=== PATIENT | male | born 1950 | race Caucasian/White ===

== ENCOUNTER 2018-10-21 15:43 | Inpatient (IN) | payer OTHER ==
[2018-10-21 17:49] VITALS: BMI 208.0
--- NOTE | 2018-10-21 18:55 | HP ---
COWS - Scale Resting Pulse: 1= [place] 81-100 Sweatin=Flushed/Facial Moisture Restless Observation: 1= Difficult to Sit Still Pupil Size: 0= Normal to Room Light Bone or Joint Aches: 2= Severe Diffuse Aches Runny Nose/ Eye Tearin= Runny Nose/Eyes GI Upset > 30mins: 2= Nausea/Diarrhea Tremor Observation: 2= Slight Tremor Visible Yawning Observation: 2= >3x During Session Anxiety or Irritability: 2=Irritable/Anxious Goose Flesh Skin: 3=Piloerection COWS Score: 19 CIWA Score - Admission Criteria OASAS Guidelines: Admission for Medically Managed Detox: Requires at least one of the followin. CIWA greater than 12 2. Seizures within the past 24 hours 3. Delirium tremens within the past 24 hours 4. Hallucinations within the past 24 hours 5. Acute intervention needed for co occurring medical disorder 6. Acute intervention needed for co occurring psychiatric disorder 7. Severe withdrawal that cannot be handled at a lower level of care (continued vomiting, continued diarrhea, abnormal vital signs) requiring intravenous medication and/or fluids 8. Admission ROS [facility] - [facility] Chief Complaint: I am here to get the help I need to detox. Allergies/Adverse Reactions: Allergies Allergy/AdvReac Type Severity Reaction Status Date / Time No Known Allergies Allergy Verified 10/21/18 18:49 History of Present Illness: pt is a 68yr old male with a history of heroin and crack/cocaine dependence seeking detox for treatment. pt was sober for 25yrs then his passed a year ago and he tried to keep it together, pt relapsed 5weeks ago and is here for detox. Exam Limitations: No Limitations - Ebola screening Have you traveled outside of the country in the last 21 days: No (N) Have you had contact with anyone from an Ebola affected area: No Have you been sick,other than usual withdrawal symptoms: No Do you have a fever: No - Review of Systems Constitutional: Chills, Diaphoresis, Loss of Appetite, Night Sweats, Unintentional Wgt. Loss EENT: reports: Tearing, Nose Congestion Respiratory: reports: No Symptoms reported Cardiac: reports: Lightheadedness, Syncope GI: reports: Constipated, Diarrhea, Poor Appetite, Poor Fluid Intake : reports: No Symptoms Reported Musculoskeletal: reports: Back Pain, Joint Pain Integumentary: reports: Flushing, Sweating Neuro: reports: Tingling, Tremors Endocrine: reports: Excessive Sweating, Flushing, Intolerance to Cold, Intolerance to Heat Hematology: reports: No Symptoms Reported Psychiatric: reports: Judgement Intact, Mood/Affect Appropiate, Orientated x3, Agitated, Anxious Other Systems: Reviewed and Negative Patient History - Patient Medical History Hx Anemia: No Hx Asthma: No Hx Chronic Obstructive Pulmonary Disease (COPD): No Hx Cancer: No Hx Cardiac Disorders: No Hx Congestive Heart Failure: No Hx Hypertension: Yes (not sure of the name) Hx Hypercholesterolemia: No Hx Pacemaker: No HX Cerebrovascular Accident: No Hx Seizures: No Hx Dementia: No Hx Diabetes: No Hx Gastrointestinal Disorders: Yes (acid reflux) Hx Liver Disease: No Hx Genitourinary Disorders: No Hx Sexually Transmitted Disorders: No Hx Renal Disease (ESRD): No Hx Thyroid Disease: No Hx Human Immunodeficiency Virus (HIV): No (negative) Hx Hepatitis C: Yes (undectecable/no treatment) Hx Depression: Yes Hx Suicide Attempt: No (denies) Hx Bipolar Disorder: No Hx Schizophrenia: No - Patient Surgical History Past Surgical History: No - PPD History Previous Implant?: Yes Documented Results: Negative w/proof PPD to be Administered?: No - Reproductive History Patient is a Female of Child Bearing Age (11 -55 yrs old): No - Smoking Cessation Smoking history: Former smoker Have you smoked in the past 12 months: No If you are a former smoker, when did you quit?: 25yrs ago Hx Chewing Tobacco Use: No Initiated information on smoking cessation: Yes 'Breaking Loose' booklet given: 10/21/18 - Substance & Tx. History Hx Alcohol Use: No Hx Substance Use: Yes Substance Use Type: Cocaine, Heroin Hx Substance Use Treatment: Yes (last detox 25yrs ago) - Substances Abused Heroin Route: Inhalation Frequency: Daily Amount used: 10bags daily Age of first use: 18 Date of Last Use: 10/21/18 Crack Route: Smoking Frequency: Daily Amount used: $500 Age of first use: 30 Date of Last Use: 10/21/18 Family Disease History - Family Disease History Family History: Denies Family Disease History: Diabetes: Mother, Heart Disease: Mother Admission Physical Exam BHS - Vital Signs Vital Signs: Vital Signs - 24 hr 12/26/18 17:47 Temperature 98.7 F Pulse Rate 84 Respiratory 18 Rate Blood Pressure 146/71 - Physical General Appearance: Yes: Appropriately Dressed, Moderate Distress, Thin, Tremorous, Irritable, Sweating, Anxious HEENTM: Yes: Hearing grossly Normal, Normal Voice, Nasal Congestion, Rhinorrhea Respiratory: Yes: Lungs Clear, Normal Breath Sounds, No Respiratory Distress Neck: Yes: No masses,lesions,Nodules Breast: Yes: Within Normal Limits Cardiology: Yes: Regular Rhythm, Regular Rate, S1, S2, Tachycardia Abdominal: Yes: Non Tender, Soft Genitourinary: Yes: Within Normal Limits Back: Yes: Normal Inspection Musculoskeletal: Yes: full range of Motion, Back pain Extremities: Yes: Normal Capillary Refill, Normal Inspection, Non-Tender, Tremors Neurological: Yes: Fully Oriented, Alert, Normal Response Integumentary: Yes: Normal Color, Diaphoresis Lymphatic: Yes: Within Normal Limits - Diagnostic (1) Opioid dependence with withdrawal Current Visit: Yes Status: Chronic (2) Crack cocaine use Current Visit: Yes Status: Chronic (3) Hypertension Current Visit: Yes Status: Chronic Qualifiers: Hypertension type: essential hypertension Qualified Code(s): I10 - Essential (primary) hypertension Cleared for Admission [facility] - Detox or Rehab [facility] Level of Care: Medically Managed Detox Regimen/Protocol: Methadone [facility] Breath Alcohol Content Breath Alcohol Content: 0 Urine Drug Screen - Results Drug Screen Negative: No Urine Drug Screen Results: ROSIO-Cocaine, OPI-Opiates, BZO-Benzodiazepines
[2018-10-21] MEDS ORDERED: LOPERAMIDE HCL 2 MG CAPSULE PO PRN (19:04)
[2018-10-21] MEDS ORDERED: ACETAMINOPHEN 325 MG TABLET (FP) PO PRN (19:04)
[2018-10-21] MEDS ORDERED: guaiFENesin/D-METHORPHAN HB 10 ML UNIT-DOSE CUPS PO PRN (19:04)
[2018-10-21] MEDS ORDERED: P-EPHED 60MG/TRIPROLIDI 2.5MG TABLET PO PRN (19:04)
[2018-10-21] MEDS ORDERED: IBUPROFEN 400 MG TABLET (FP) PO PRN (19:04)
[2018-10-21] MEDS ORDERED: MAGNESIUM CITRATE 300 ML BOTTLE PO PRN (19:04)
[2018-10-21] MEDS ORDERED: MAG HYDROX/AL HYDROX/SIMETH 30 ML UNIT-DOSE CUP PO PRN (19:04)
[2018-10-21] MEDS ORDERED: MAGNESIUM HYDROX 2400MG/30ML ORAL SUSPENSION 30 ML CUP PO PRN (19:04)
[2018-10-21] MEDS ORDERED: METHADONE HCL 10 MG TABLET (FOR DETOX USE ONLY) PO ONE ×2 (19:04→23:00)
[2018-10-21] MEDS ORDERED: MENTHOL/PHENOL 1 EACH UD MM PRN (19:04)
[2018-10-21] MEDS ORDERED: MELATONIN 5 MG TABLETS PO PRN (22:00)
[2018-10-21] MEDS: THIAMINE HCL 100 MG TABLET (FP) PO SCH (22:29)
[2018-10-21] MEDS: cloNIDine HCL 0.1 MG TABLET PO SCH (22:30)
[2018-10-21] MEDS: diazePAM 5 MG TABLET PO PRN (22:52)
[2018-10-22] MEDS: diazePAM 5 MG TABLET PO PRN ×2 (05:52→18:22)
[2018-10-22] MEDS ORDERED: METHADONE HCL 10 MG TABLET (FOR DETOX USE ONLY) PO ONE (10:00)
[2018-10-22] MEDS: PRENATAL VITAMINS W/ FOLIC ACID TABLET (FP) PO SCH (10:08)
[2018-10-22] MEDS: cloNIDine HCL 0.1 MG TABLET PO SCH ×2 (10:08→22:10)
--- NOTE | 2018-10-22 10:11 | PN ---
BHS COWS - Scale Resting Pulse: 0= [place] 80 or Below Sweatin=Flushed/Facial Moisture Restless Observation: 1= Difficult to Sit Still Pupil Size: 0= Normal to Room Light Bone or Joint Aches: 2= Severe Diffuse Aches Runny Nose/ Eye Tearin= Runny Nose/Eyes GI Upset > 30mins: 1= Stomach Cramp Tremor Observation of Outstretched Hands: 2= Slight Tremor Visible Yawning Observation: 2= >3x During Session Anxiety or Irritability: 2=Irritable/Anxious Goose Flesh Skin: 3=Piloerection COWS Score: 17 BHS Progress Note (SOAP) Subjective: shakes sweats interrupted sleep body aches tearing eyes Objective: 10/22/18 10:11 Vital Signs Temperature 98.1 F 10/22/18 09:54 Pulse Rate 80 10/22/18 09:54 Respiratory Rate 18 10/22/18 09:54 Blood Pressure 124/79 10/22/18 09:54 O2 Sat by Pulse Oximetry (%) labs pending aaox3 ambulating no acute distress Assessment: 10/22/18 10:12 withdrawal sx Plan: continue detox increase fluids labs pending
[2018-10-22 10:59] LABS: HEMATOCRIT 38.7 % (35.4-49); HEMOGLOBIN 12.7 GM/dL (11.7-16.9); MCH 27.6 pg (25.7-33.7); MCHC 32.8 g/dl (32.0-35.9); MEAN CELL VOLUME 84.2 fl (80-96); MEAN PLT VOLUME 8.5 fl (7.5-11.1); PLATELET COUNT 332 K/MM3 (134-434); RDW 14.3 % (11.9-15.9); WHITE BLOOD COUNT 12.9 K/mm3 (4.0-10.0)
[2018-10-22 11:42] LABS: ALBUMIN 3.1 g/dl (3.4-5.0); ALK PHOS 60 U/L (45-117); ANION GAP 7 MMOL/L (8-16); BILIRUBIN,TOTAL 0.3 mg/dL (0.2-1); BLOOD UREA NITROGEN 18 mg/dL (7-18); CALCIUM 8.4 mg/dL (8.5-10.1); CHLORIDE 98 mmol/L (98-107); CO2 33 mmol/L (21-32); CREATININE 0.9 mg/dL (0.55-1.3); GLUCOSE,RANDOM 112 mg/dL (74-106); POTASSIUM 3.8 mmol/L (3.5-5.1); SGOT/AST 25 U/L (15-37); SGPT/ALT 23 U/L (13-61); SODIUM 137 mmol/L (136-145); TOT PROT 5.6 g/dl (6.4-8.2)
--- NOTE | 2018-10-22 12:17 | EKG ---
Test Reason : Blood Pressure : / mmHG Vent. Rate : 081 BPM Atrial Rate : 081 BPM P-R Int : 148 ms QRS Dur : 088 ms QT Int : 384 ms P-R-T Axes : 070 008 071 degrees QTc Int : 446 ms POOR DATA QUALITY, INTERPRETATION MAY BE ADVERSELY AFFECTED NORMAL SINUS RHYTHM WITH SINUS ARRHYTHMIA NORMAL ECG NO PREVIOUS ECGS AVAILABLE Confirmed by TREVON VILLAVICENCIO MD ([id number]) on 10/22/2018 12:17:18 PM Referred By: Confirmed By:TREVON VILLAVICENCIO MD
--- NOTE | 2018-10-22 12:47 | PN ---
BHS Progress Note Note: open cut to right thumb and index finger; bacitracin oint ordered
[2018-10-22] MEDS: BACITRACIN 0.9 GM PACKET TP SCH ×2 (15:12→22:10)
[2018-10-22] MEDS: THIAMINE HCL 100 MG TABLET (FP) PO SCH (22:10)
[2018-10-23] MEDS ORDERED: SODIUM PHOSPHATE/NA BIPHOS 133 ML ENEMA PR ONE (09:40)
[2018-10-23] MEDS ORDERED: METHADONE HCL 5 MG TABLET (FOR DETOX USE ONLY) PO ONE (10:00)
--- NOTE | 2018-10-23 10:02 | PN ---
BHS COWS - Scale Resting Pulse: 1= [place] 81-100 Sweatin=Flushed/Facial Moisture Restless Observation: 1= Difficult to Sit Still Pupil Size: 0= Normal to Room Light Bone or Joint Aches: 2= Severe Diffuse Aches Runny Nose/ Eye Tearin= Runny Nose/Eyes GI Upset > 30mins: 1= Stomach Cramp Tremor Observation of Outstretched Hands: 2= Slight Tremor Visible Yawning Observation: 2= >3x During Session Anxiety or Irritability: 2=Irritable/Anxious Goose Flesh Skin: 0=Smooth Skin COWS Score: 15 BHS Progress Note (SOAP) Subjective: i need to move my bowels stomach ache sweats chills body aches Objective: 10/23/18 10:02 Vital Signs Temperature 98.8 F 10/23/18 09:07 Pulse Rate 91 H 10/23/18 09:07 Respiratory Rate 18 10/23/18 09:07 Blood Pressure 141/80 10/23/18 09:07 O2 Sat by Pulse Oximetry (%) Laboratory Tests 10/22/18 10/22/18 10/22/18 07:00 07:00 07:00 WBC 12.9 H RBC 4.60 Hgb 12.7 Hct 38.7 MCV 84.2 MCH 27.6 MCHC 32.8 RDW 14.3 Plt Count 332 MPV 8.5 Sodium 137 Potassium 3.8 Chloride 98 Carbon Dioxide 33 H Anion Gap 7 L BUN 18 Creatinine 0.9 Creat Clearance w eGFR > 60 Random Glucose 112 H Calcium 8.4 L Total Bilirubin 0.3 AST 25 ALT 23 Alkaline Phosphatase 60 Total Protein 5.6 L Albumin 3.1 L RPR Titer Nonreactive aaox3 ambulating no acute distress Assessment: 10/23/18 10:09 withdrawal sx Plan: continue detox increase fluids prune juice ordered with meals fleets enema x one senna bid
[2018-10-23] MEDS: BACITRACIN 0.9 GM PACKET TP SCH ×2 (10:21→22:21)
[2018-10-23] MEDS: cloNIDine HCL 0.1 MG TABLET PO SCH ×2 (10:21→22:21)
[2018-10-23] MEDS: PRENATAL VITAMINS W/ FOLIC ACID TABLET (FP) PO SCH (10:21)
[2018-10-23] MEDS: SENNOSIDES 8.6MG TABLET (FP) PO SCH ×2 (10:26→22:21)
[2018-10-23] MEDS: DOCUSATE SODIUM 100 MG CAPSULE (FP) PO SCH ×2 (13:31→22:21)
[2018-10-23] MEDS: diazePAM 5 MG TABLET PO PRN (13:36)
[2018-10-23] MEDS: PSYLLIUM 5.85 GM PACKET PO SCH ×2 (15:53→22:24)
[2018-10-23] MEDS: THIAMINE HCL 100 MG TABLET (FP) PO SCH (22:21)
[2018-10-24] MEDS: DOCUSATE SODIUM 100 MG CAPSULE (FP) PO SCH ×3 (06:49→23:22)
[2018-10-24] MEDS: PSYLLIUM 5.85 GM PACKET PO SCH ×3 (06:49→23:22)
[2018-10-24] MEDS ORDERED: METHADONE HCL 5 MG TABLET (FOR DETOX USE ONLY) PO ONE (10:00)
--- NOTE | 2018-10-24 10:09 | PN ---
S Progress Note Note: PATIENT CONTINUES WITH DETOX REGIMEN. C/O MILD BODY ACHES, INTERRUPTED SLEEP AND ANXIETY. Vital Signs Temperature 99.1 F 10/24/18 09:26 Pulse Rate 77 10/24/18 09:26 Respiratory Rate 16 10/24/18 09:26 Blood Pressure 122/69 10/24/18 09:26 O2 Sat by Pulse Oximetry (%) Laboratory Tests 10/22/18 10/22/18 10/22/18 07:00 07:00 07:00 WBC 12.9 H RBC 4.60 Hgb 12.7 Hct 38.7 MCV 84.2 MCH 27.6 MCHC 32.8 RDW 14.3 Plt Count 332 MPV 8.5 Sodium 137 Potassium 3.8 Chloride 98 Carbon Dioxide 33 H Anion Gap 7 L BUN 18 Creatinine 0.9 Creat Clearance w eGFR > 60 Random Glucose 112 H Calcium 8.4 L Total Bilirubin 0.3 AST 25 ALT 23 Alkaline Phosphatase 60 Total Protein 5.6 L Albumin 3.1 L RPR Titer Nonreactive PE: ALERT AND ORIENTED X 3 SKIN WARM AND DRY EXT FULL ROM, NO VISIBLE TREMORS AMB AD LUCRECIA A/P WITHDRAWAL SX IMPROVED CONTINUE DETOX ENCOURAGE ORAL FLUIDS CONTINUE TO MONITOR CLINICALLY
[2018-10-24] MEDS: PRENATAL VITAMINS W/ FOLIC ACID TABLET (FP) PO SCH (10:18)
[2018-10-24] MEDS: cloNIDine HCL 0.1 MG TABLET PO SCH ×2 (10:18→22:15)
[2018-10-24] MEDS: SENNOSIDES 8.6MG TABLET (FP) PO SCH ×2 (10:19→23:22)
[2018-10-24] MEDS: BACITRACIN 0.9 GM PACKET TP SCH ×2 (10:19→22:15)
[2018-10-24] MEDS: diazePAM 5 MG TABLET PO PRN (10:21)
[2018-10-24] MEDS: hydrOXYzine PAMOATE 50 MG CAPSULE (FP) PO PRN (19:47)
[2018-10-24] MEDS: THIAMINE HCL 100 MG TABLET (FP) PO SCH (22:15)
[2018-10-25] MEDS: PSYLLIUM 5.85 GM PACKET PO SCH ×3 (06:15→22:12)
[2018-10-25] MEDS: DOCUSATE SODIUM 100 MG CAPSULE (FP) PO SCH ×3 (06:15→22:12)
[2018-10-25] MEDS ORDERED: METHADONE HCL 10 MG TABLET (FOR DETOX USE ONLY) PO ONE (10:00)
[2018-10-25] MEDS: cloNIDine HCL 0.1 MG TABLET PO SCH ×2 (10:04→22:12)
[2018-10-25] MEDS: BACITRACIN 0.9 GM PACKET TP SCH ×2 (10:04→22:12)
[2018-10-25] MEDS: PRENATAL VITAMINS W/ FOLIC ACID TABLET (FP) PO SCH (10:04)
[2018-10-25] MEDS: SENNOSIDES 8.6MG TABLET (FP) PO SCH ×2 (10:05→22:12)
--- NOTE | 2018-10-25 10:06 | PN ---
BHS Progress Note (SOAP) Subjective: feeling better no body ache no tremor less sweat social with peers in day room sleep better at night Objective: 10/25/18 10:05 Vital Signs Temperature 96.9 F L 10/25/18 09:26 Pulse Rate 83 10/25/18 09:26 Respiratory Rate 18 10/25/18 09:26 Blood Pressure 133/86 10/25/18 09:26 O2 Sat by Pulse Oximetry (%) Laboratory Last Values WBC 12.9 K/mm3 (4.0-10.0) H 10/22/18 07:00 RBC 4.60 M/mm3 (4.00-5.60) 10/22/18 07:00 Hgb 12.7 GM/dL (11.7-16.9) 10/22/18 07:00 Hct 38.7 % (35.4-49) 10/22/18 07:00 MCV 84.2 fl (80-96) 10/22/18 07:00 MCH 27.6 pg (25.7-33.7) 10/22/18 07:00 MCHC 32.8 g/dl (32.0-35.9) 10/22/18 07:00 RDW 14.3 % (11.9-15.9) 10/22/18 07:00 Plt Count 332 K/MM3 (134-434) 10/22/18 07:00 MPV 8.5 fl (7.5-11.1) 10/22/18 07:00 Sodium 137 mmol/L (136-145) 10/22/18 07:00 Potassium 3.8 mmol/L (3.5-5.1) 10/22/18 07:00 Chloride 98 mmol/L (98-107) 10/22/18 07:00 Carbon Dioxide 33 mmol/L (21-32) H 10/22/18 07:00 Anion Gap 7 MMOL/L (8-16) L 10/22/18 07:00 BUN 18 mg/dL (7-18) 10/22/18 07:00 Creatinine 0.9 mg/dL (0.55-1.3) 10/22/18 07:00 Creat Clearance w eGFR > 60 (>60) 10/22/18 07:00 Random Glucose 112 mg/dL (74-106) H 10/22/18 07:00 Calcium 8.4 mg/dL (8.5-10.1) L 10/22/18 07:00 Total Bilirubin 0.3 mg/dL (0.2-1) 10/22/18 07:00 AST 25 U/L (15-37) 10/22/18 07:00 ALT 23 U/L (13-61) 10/22/18 07:00 Alkaline Phosphatase 60 U/L (45-117) 10/22/18 07:00 Total Protein 5.6 g/dl (6.4-8.2) L 10/22/18 07:00 Albumin 3.1 g/dl (3.4-5.0) L 10/22/18 07:00 RPR Titer Nonreactive (NONREACTIVE) 10/22/18 07:00 lab noted Assessment: 10/25/18 10:06 mild withdrawal sx Plan: medically supervised detox
[2018-10-25] MEDS: hydrOXYzine PAMOATE 50 MG CAPSULE (FP) PO PRN ×2 (10:07→22:11)
[2018-10-25 10:53] LABS: BASO % 0.4 % (0-2.0); EOS % 1.9 % (0-4.5); HEMATOCRIT 34.3 % (35.4-49); HEMOGLOBIN 11.9 GM/dL (11.7-16.9); LYMPH % 16.3 % (8-40); MCH 29.1 pg (25.7-33.7); MCHC 34.7 g/dl (32.0-35.9); MEAN CELL VOLUME 83.8 fl (80-96); MEAN PLT VOLUME 8.8 fl (7.5-11.1); MONO % 5.7 % (3.8-10.2); NEUT % 75.7 % (42.8-82.8); PLATELET COUNT 277 K/MM3 (134-434); RDW 14.8 % (11.9-15.9); WHITE BLOOD COUNT 13.3 K/mm3 (4.0-10.0)
--- NOTE | 2018-10-25 11:28 | EKG ---
Test Reason : Blood Pressure : / mmHG Vent. Rate : 076 BPM Atrial Rate : 076 BPM P-R Int : 152 ms QRS Dur : 092 ms QT Int : 388 ms P-R-T Axes : 070 011 055 degrees QTc Int : 436 ms NORMAL SINUS RHYTHM NORMAL ECG WHEN COMPARED WITH ECG OF 21-OCT-2018 21:58, NO SIGNIFICANT CHANGE WAS FOUND Confirmed by TREVON VILLAVICENCIO MD ([id number]) on 10/25/2018 11:27:57 AM Referred By: Confirmed By:TREVON VILLAVICENCIO MD
[2018-10-25] MEDS: THIAMINE HCL 100 MG TABLET (FP) PO SCH (22:10)
[2018-10-26] MEDS: DOCUSATE SODIUM 100 MG CAPSULE (FP) PO SCH (05:43)
[2018-10-26] MEDS: PSYLLIUM 5.85 GM PACKET PO SCH (05:44)
[2018-10-26] MEDS: hydrOXYzine PAMOATE 50 MG CAPSULE (FP) PO PRN (05:45)
[2018-10-26] MEDS ORDERED: METHADONE HCL 5 MG TABLET (FOR DETOX USE ONLY) PO ONE (06:00)
--- NOTE | 2018-10-26 08:37 | DS ---
[facility] Detox Discharge Summary Admission Date: 10/21/18 Discharge Date: 10/26/18 - History Present History: Cocaine Dependence, Opioid Dependence - Physical Exam Results Vital Signs: Vital Signs Temperature 97.7 F 10/26/18 06:59 Pulse Rate 75 10/26/18 06:59 Respiratory Rate 18 10/26/18 06:59 Blood Pressure 158/88 10/26/18 06:59 O2 Sat by Pulse Oximetry (%) - Treatment Hospital Course: Detox Protocol Followed, Detoxed Safely, Responded well, Discharged Condition Good, Rehab Referral Accepted - Medication Discharge Medications: Ambulatory Orders NK [No Known Home Medication] 10/21/18 - Diagnosis (1) Opioid dependence with withdrawal Current Visit: Yes Status: Chronic (2) Crack cocaine use Current Visit: Yes Status: Chronic (3) Hypertension Current Visit: Yes Status: Chronic Qualifiers: Hypertension type: essential hypertension Qualified Code(s): I10 - Essential (primary) hypertension - AMA Did Patient Leave Against Medical Advice: No (referred to [facility] rehab)
[2018-10-26 09:27] VITALS: BP 139/94; PULSE 87; TEMP 98.2
== END 2018-10-26 09:45 | disposition home or self-care (01) | DRG 897 ==
LOC: YASAS 15:43 → Y6N 19:28
PROC: HZ2ZZZZ Detoxification Services for Substance Abuse Treatment (ICD-10-PCS; principal; 2018-10-21)
DX: F11.23 Opioid dependence with withdrawal (principal); F14.90 Cocaine use, unspecified, uncomplicated; I10 Essential (primary) hypertension; K21.9 Gastro-esophageal reflux disease without esophagitis; S61.011D Laceration without foreign body of right thumb without damage to nail, subsequent encounter; X58.XXXD Exposure to other specified factors, subsequent encounter
CPT/HCPCS: 36415; 80053; 85025; 85027; 86593; 93005; 93010; J0735

== ENCOUNTER 2023-03-17 18:19 | Emergency (ER) | payer OTHER ==
[2023-03-17 18:48] VITALS: BP 139/89; PULSE 83; RESP 18; TEMP 98; BMI 21.8
== END 2023-03-17 19:56 | disposition home or self-care (01) ==
LOC: FER 18:19
DX: R22.42 Localized swelling, mass and lump, left lower limb (principal)
CPT/HCPCS: 99282-25

== ENCOUNTER 2023-06-03 09:50 | Inpatient (IN) | payer OTHER ==
[2023-06-03 10:49] VITALS: BMI 19.3
[2023-06-03] MEDS ORDERED: IBUPROFEN 400 MG TABLET (FP) PO PRN (12:58)
[2023-06-03] MEDS ORDERED: NALOXONE HCL (KLOXXADO) 8 MG SPRAY NS PRN (12:58)
[2023-06-03] MEDS ORDERED: BENZONATATE 200 MG CAPSULE PO PRN (12:58)
[2023-06-03] MEDS ORDERED: ACETAMINOPHEN 325 MG TABLET (FP) PO PRN (12:58)
[2023-06-03] MEDS ORDERED: METHOCARBAMOL 500 MG TABLET PO PRN (12:58)
[2023-06-03] MEDS ORDERED: MAG HYDROX/AL HYDROX/SIMETH 30 ML UNIT-DOSE CUP PO PRN (12:58)
[2023-06-03] MEDS ORDERED: DICYCLOMINE HCL 10 MG CAPSULE PO PRN (12:58)
[2023-06-03] MEDS ORDERED: ONDANSETRON *ODT* 4 MG TABLET SL PRN (12:58)
[2023-06-03] MEDS ORDERED: BISMUTH SUBSALICYLATE 524 MG/30 ML PO PRN (12:58)
[2023-06-03] MEDS ORDERED: NALOXONE HCL 0.4 MG/ML VIAL IM PRN (12:58)
[2023-06-03] MEDS ORDERED: LOPERAMIDE HCL 2 MG CAPSULE PO PRN (12:58)
[2023-06-03] MEDS ORDERED: BENZOCAINE/MENTHOL (CHLORASEPTIC ) LOZENGE MM PRN (12:58)
[2023-06-03] MEDS ORDERED: MAGNESIUM HYDROX 2400MG/30ML ORAL SUSPENSION 30 ML CUP PO PRN (12:58)
[2023-06-03] MEDS ORDERED: POLYETHYLENE GLYCOL (HEALTHYLAX) 3350 17 GM PACKET PO PRN (12:58)
[2023-06-03] MEDS ORDERED: guaiFENesin 600 MG TABLET.ER (FP) PO PRN (12:58)
[2023-06-03] MEDS: IBUPROFEN 600 MG TABLET (FP) PO PRN (18:19)
[2023-06-03] MEDS ORDERED: cloNIDine HCL 0.1 MG TABLET PO ONE (19:28)
[2023-06-03] MEDS: THIAMINE HCL 100 MG TABLET (FP) PO SCH (23:20)
[2023-06-03] MEDS: MELATONIN 5 MG TABLETS PO SCH (23:20)
[2023-06-04] MEDS ORDERED: cloNIDine HCL 0.1 MG TABLET PO PRN (03:27)
[2023-06-04] MEDS: IBUPROFEN 600 MG TABLET (FP) PO PRN (04:01)
[2023-06-04] MEDS ORDERED: LORazepam 1 MG TABLET PO PRN (10:02)
[2023-06-04] MEDS: PRENATAL VITAMINS W/ FOLIC ACID TABLET (FP) PO SCH (10:45)
[2023-06-04] MEDS: LORazepam 1 MG TABLET PO SCH ×3 (11:11→22:07)
[2023-06-04 11:35] LABS: HEMATOCRIT 40.7 % (35.4-49); HEMOGLOBIN 13.2 GM/dL (11.7-16.9); MCH 27.4 pg (25.7-33.7); MCHC 32.4 g/dl (32.0-35.9); MEAN CELL VOLUME 84.7 fl (80-96); MEAN PLT VOLUME 8.5 fl (7.5-11.1); PLATELET COUNT 308 10^3/uL (134-434); RDW 16.6 % (11.9-15.9); WHITE BLOOD COUNT 7.4 K/mm3 (4.0-10.0)
[2023-06-04 13:56] LABS: POTASSIUM 3.8 mmol/L (3.5-5.1)
[2023-06-04 14:03] LABS: ALBUMIN 3.3 g/dl (3.4-5.0); BLOOD UREA NITROGEN 29.4 mg/dL (7-18)
[2023-06-04 14:06] LABS: CREATININE 1.1 mg/dL (0.55-1.3)
[2023-06-04 14:08] LABS: BILIRUBIN,TOTAL 0.2 mg/dL (0.2-1); TOT PROT 6.6 g/dl (6.4-8.2)
[2023-06-04] MEDS: MELATONIN 5 MG TABLETS PO SCH (22:07)
[2023-06-04] MEDS: THIAMINE HCL 100 MG TABLET (FP) PO SCH (22:07)
[2023-06-05] MEDS: LORazepam 1 MG TABLET PO SCH ×4 (06:00→22:32)
[2023-06-05] MEDS: cloNIDine HCL 0.1 MG TABLET PO PRN (09:35)
[2023-06-05] MEDS: PRENATAL VITAMINS W/ FOLIC ACID TABLET (FP) PO SCH (10:22)
[2023-06-05 14:05] LABS: POTASSIUM 4.3 mmol/L (3.5-5.1)
[2023-06-05 14:06] LABS: CALCIUM 8.6 mg/dL (8.5-10.1)
[2023-06-05 14:07] LABS: BLOOD UREA NITROGEN 18.5 mg/dL (7-18)
[2023-06-05 14:10] LABS: CREATININE 0.8 mg/dL (0.55-1.3)
[2023-06-05] MEDS ORDERED: LACTULOSE 20 GM/30 ML UDC (FOR ORAL USE ONLY) PO PRN (15:14)
[2023-06-05] MEDS: THIAMINE HCL 100 MG TABLET (FP) PO SCH (22:30)
[2023-06-05] MEDS: MELATONIN 5 MG TABLETS PO SCH (22:30)
[2023-06-05] MEDS: LACTULOSE 20 GM/30 ML UDC (FOR ORAL USE ONLY) PO SCH (22:30)
[2023-06-06] MEDS: LORazepam 1 MG TABLET PO SCH ×3 (05:45→16:47)
[2023-06-06] MEDS: LACTULOSE 20 GM/30 ML UDC (FOR ORAL USE ONLY) PO SCH ×2 (05:45→13:14)
[2023-06-06 09:03] VITALS: RESP 16
[2023-06-06] MEDS: PRENATAL VITAMINS W/ FOLIC ACID TABLET (FP) PO SCH (10:08)
[2023-06-06] MEDS: cloNIDine HCL 0.1 MG TABLET PO PRN (10:09)
[2023-06-06 12:55] VITALS: TEMP 97.3
[2023-06-06] MEDS ORDERED: ALBUTEROL SO4 2.5/IPRATROPIUM 0.5 INH SOL 3 ML VIAL.NEB. NEB ONE (13:15)
[2023-06-06] MEDS ORDERED: predniSONE 20 MG TABLET (UD) PO ONE (13:15)
[2023-06-06] MEDS ORDERED: amLODIPine BESYLATE 10 MG TABLET (FP) PO SCH (15:00)
[2023-06-06 15:37] VITALS: BP 168/92; PULSE 101
[2023-06-07] MEDS ORDERED: LORazepam 0.5 MG TABLET PO PRN
[2023-06-07] MEDS ORDERED: LORazepam 0.5 MG TABLET PO SCH (05:00)
[2023-06-08] MEDS ORDERED: LORazepam 0.5 MG TABLET PO ONE (05:00)
== END 2023-06-06 17:10 | disposition left against medical advice (07) | DRG 894 ==
LOC: YASAS 09:50 → Y3N 13:06
PROVIDERS: ADMIT Allergy & Immunology; ATTEND Psychiatry & Neurology Pain Medicine
PROC: HZ42ZZZ Group Counseling for Substance Abuse Treatment, Cognitive-Behavioral (ICD-10-PCS; principal; 2023-06-03)
DX: F13.20 Sedative, hypnotic or anxiolytic dependence, uncomplicated (principal); F14.20 Cocaine dependence, uncomplicated; F32.A Depression, unspecified; I10 Essential (primary) hypertension; K21.9 Gastro-esophageal reflux disease without esophagitis; R41.82 Altered mental status, unspecified; R79.89 Other specified abnormal findings of blood chemistry; Z96.652 Presence of left artificial knee joint; Z86.19 Personal history of other infectious and parasitic diseases; Z87.891 Personal history of nicotine dependence
CPT/HCPCS: 36415; 70450-TC; 71045-TC-FY; 80048; 80053; 80307; 81003; 82140; 82962; 83735; 84484; 85025; 85027; 85610; 85730; 86780; 87086; 87635; 87811; 93005; 93010; 94640; 99285-25

== ENCOUNTER 2023-06-03 20:37 | Emergency (ER) | payer OTHER ==
[2023-06-03 20:54] VITALS: BMI 19.3
[2023-06-03] MEDS ORDERED: LACTATED RINGERS SOLUTION 1000 ML INFUS.BAG IV ONE (21:25)
[2023-06-03 22:46] LABS: BASO % 0.7 % (0-2.0); EOS % 2.2 % (0-4.5); HEMATOCRIT 46.9 % (35.4-49); HEMOGLOBIN 15.7 GM/dL (11.7-16.9); LYMPH % 20.2 % (8-40); MCH 27.4 pg (25.7-33.7); MCHC 33.4 g/dl (32.0-35.9); MEAN CELL VOLUME 82.1 fl (80-96); MEAN PLT VOLUME 7.2 fl (7.5-11.1); MONO % 5.3 % (3.8-10.2); NEUT % 71.6 % (42.8-82.8); PLATELET COUNT 327 10^3/uL (134-434); RBC 5.71 M/mm3 (4.00-5.60); RDW 16.5 % (11.9-15.9); WHITE BLOOD COUNT 9.5 K/mm3 (4.0-10.0)
[2023-06-03 22:59] LABS: CHLORIDE 106 mmol/L (98-107); POTASSIUM 3.8 mmol/L (3.5-5.1); SODIUM 144 mmol/L (136-145)
[2023-06-03 23:00] LABS: ALBUMIN 3.8 g/dl (3.4-5.0); ANION GAP 5 MMOL/L (8-16); CALCIUM 9.4 mg/dL (8.5-10.1); CO2 34 mmol/L (21-32); GLUCOSE,RANDOM 93 mg/dL (74-106); MAGNESIUM 2.2 mg/dL (1.8-2.4)
[2023-06-03 23:03] LABS: SGOT/AST 25 U/L (15-37); SGPT/ALT 21 U/L (13-61)
[2023-06-03 23:05] LABS: BILIRUBIN,TOTAL 0.3 mg/dL (0.2-1); TOT PROT 8.1 g/dl (6.4-8.2)
[2023-06-03 23:06] LABS: ALK PHOS 114 U/L (45-117)
[2023-06-03 23:08] LABS: INR 0.96 (0.83-1.09); PROTHROMBIN TIME (PATIENT) 11.1 SEC (9.7-13.0)
[2023-06-03 23:21] LABS: URINE APPEARANCE CLEAR; URINE BILIRUBIN NEGATIVE (NEGATIVE); URINE COLOR YELLOW; URINE GLUCOSE (UA) NEGATIVE (NEGATIVE); URINE KETONE NEGATIVE (NEGATIVE); URINE LEUK ESTERASE NEGATIVE (NEGATIVE); URINE NITRITE NEGATIVE (NEGATIVE); URINE PROTEIN NEGATIVE (NEGATIVE); URINE UROBILINOGEN 0.2 mg/dL (0.2-1.0)
[2023-06-04 00:39] VITALS: PULSE 72; TEMP 98.3
[2023-06-04] MEDS ORDERED: cloNIDine HCL 0.1 MG TABLET PO ONE (00:58)
[2023-06-04] MEDS ORDERED: cloNIDine HCL 0.1 MG TABLET ONE (01:19)
[2023-06-04 02:18] VITALS: BP 127/71; RESP 14
== END 2023-06-04 02:42 | disposition home or self-care (01) ==
LOC: JER 20:37
DX: I10 Essential (primary) hypertension (principal); R53.83 Other fatigue; R40.0 Somnolence; F13.20 Sedative, hypnotic or anxiolytic dependence, uncomplicated
CPT/HCPCS: 36415; 70450-TC; 71045-TC-FY; 80053; 80307; 81003; 82962; 83735; 84484; 85025; 85610; 85730; 87086; 93005; 93010; 99285-25

== ENCOUNTER 2023-08-13 04:34 | Inpatient (IN) | payer OTHER ==
[2023-08-13 05:32] VITALS: BMI 19.5
[2023-08-13] MEDS ORDERED: BENZONATATE 200 MG CAPSULE PO PRN (07:10)
[2023-08-13] MEDS ORDERED: MAGNESIUM HYDROX 2400MG/30ML ORAL SUSPENSION 30 ML CUP PO PRN (07:10)
[2023-08-13] MEDS ORDERED: MAG HYDROX/AL HYDROX/SIMETH 30 ML UNIT-DOSE CUP PO PRN (07:10)
[2023-08-13] MEDS ORDERED: IBUPROFEN 400 MG TABLET (FP) PO PRN (07:10)
[2023-08-13] MEDS ORDERED: ONDANSETRON *ODT* 4 MG TABLET SL PRN (07:10)
[2023-08-13] MEDS ORDERED: NALOXONE HCL (KLOXXADO) 8 MG SPRAY NS PRN (07:10)
[2023-08-13] MEDS ORDERED: BISMUTH SUBSALICYLATE 524 MG/30 ML PO PRN (07:10)
[2023-08-13] MEDS ORDERED: NALOXONE HCL 0.4 MG/ML VIAL IM PRN (07:10)
[2023-08-13] MEDS ORDERED: POLYETHYLENE GLYCOL (HEALTHYLAX) 3350 17 GM PACKET PO PRN (07:10)
[2023-08-13] MEDS ORDERED: ACETAMINOPHEN 325 MG TABLET (FP) PO PRN (07:10)
[2023-08-13] MEDS ORDERED: guaiFENesin 600 MG TABLET.ER (FP) PO PRN (07:10)
[2023-08-13] MEDS ORDERED: BENZOCAINE/MENTHOL (CHLORASEPTIC ) LOZENGE MM PRN (07:10)
[2023-08-13] MEDS ORDERED: NICOTINE POLACRILEX 2 MG GUM BUC PRN (07:10)
[2023-08-13] MEDS ORDERED: LOPERAMIDE HCL 2 MG CAPSULE PO PRN (07:10)
[2023-08-13] MEDS ORDERED: NICOTINE 21 MG/24 HOURS TOPICAL PATCH ONE (08:49)
[2023-08-13] MEDS ORDERED: PRENATAL VITAMINS W/ FOLIC ACID TABLET (FP) PO ONE (08:50)
[2023-08-13] MEDS: PRENATAL VITAMINS W/ FOLIC ACID TABLET (FP) PO SCH (09:09)
[2023-08-13] MEDS: NICOTINE 21 MG/24 HOURS TOPICAL PATCH TD SCH (09:09)
[2023-08-13] MEDS: IBUPROFEN 600 MG TABLET (FP) PO PRN ×2 (10:55→22:41)
[2023-08-13] MEDS: amLODIPine BESYLATE 10 MG TABLET (FP) PO SCH (10:55)
[2023-08-13] MEDS: THIAMINE HCL 100 MG TABLET (FP) PO SCH (22:40)
[2023-08-13] MEDS: MELATONIN 5 MG TABLETS PO SCH (22:40)
[2023-08-14] MEDS ORDERED: chlordiazePOXIDE HCL 25 MG CAPSULE PO PRN (09:58)
[2023-08-14] MEDS: amLODIPine BESYLATE 10 MG TABLET (FP) PO SCH (10:36)
[2023-08-14] MEDS: PRENATAL VITAMINS W/ FOLIC ACID TABLET (FP) PO SCH (10:36)
[2023-08-14] MEDS: chlordiazePOXIDE HCL 25 MG CAPSULE PO SCH ×3 (10:37→22:46)
[2023-08-14] MEDS: NICOTINE 21 MG/24 HOURS TOPICAL PATCH TD SCH (10:38)
[2023-08-14] MEDS: LACTULOSE 20 GM/30 ML UDC (FOR ORAL USE ONLY) PO SCH ×4 (10:38→22:46)
[2023-08-14] MEDS ORDERED: cloNIDine HCL 0.1 MG TABLET PO ONE (15:30)
[2023-08-14] MEDS: cloNIDine HCL 0.1 MG TABLET PO SCH (22:46)
[2023-08-14] MEDS: MELATONIN 5 MG TABLETS PO SCH (22:46)
[2023-08-14] MEDS: THIAMINE HCL 100 MG TABLET (FP) PO SCH (22:46)
[2023-08-15] MEDS: chlordiazePOXIDE HCL 25 MG CAPSULE PO SCH ×4 (05:37→22:50)
[2023-08-15] MEDS: amLODIPine BESYLATE 10 MG TABLET (FP) PO SCH (10:28)
[2023-08-15] MEDS: NICOTINE 21 MG/24 HOURS TOPICAL PATCH TD SCH (10:28)
[2023-08-15] MEDS: PRENATAL VITAMINS W/ FOLIC ACID TABLET (FP) PO SCH (10:28)
[2023-08-15] MEDS: cloNIDine HCL 0.1 MG TABLET PO SCH ×2 (10:29→22:50)
[2023-08-15] MEDS: LACTULOSE 20 GM/30 ML UDC (FOR ORAL USE ONLY) PO SCH ×4 (10:29→22:50)
[2023-08-15 12:10] LABS: HEMATOCRIT 40.9 % (35.4-49); HEMOGLOBIN 13.3 GM/dL (11.7-16.9); MCHC 32.5 g/dl (32.0-35.9); MEAN CELL VOLUME 86.1 fl (80-96); MEAN PLT VOLUME 7.7 fl (7.5-11.1); PLATELET COUNT 319 10^3/uL (134-434); RBC 4.75 M/mm3 (4.00-5.60); RDW 15.3 % (11.9-15.9); WHITE BLOOD COUNT 11.5 K/mm3 (4.0-10.0)
[2023-08-15 12:19] LABS: POTASSIUM 3.7 mmol/L (3.5-5.1)
[2023-08-15 12:34] LABS: CALCIUM 8.8 mg/dL (8.5-10.1)
[2023-08-15 12:35] LABS: ALBUMIN 3.1 g/dl (3.4-5.0)
[2023-08-15 12:38] LABS: CREATININE 0.8 mg/dL (0.55-1.3)
[2023-08-15 12:39] LABS: BILIRUBIN,TOTAL 0.4 mg/dL (0.2-1); TOT PROT 5.6 g/dl (6.4-8.2)
[2023-08-15] MEDS: THIAMINE HCL 100 MG TABLET (FP) PO SCH (22:50)
[2023-08-15] MEDS: MELATONIN 5 MG TABLETS PO SCH (22:50)
[2023-08-16] MEDS: chlordiazePOXIDE HCL 25 MG CAPSULE PO SCH ×4 (05:15→22:38)
[2023-08-16] MEDS: cloNIDine HCL 0.1 MG TABLET PO SCH ×2 (10:29→22:39)
[2023-08-16] MEDS: LACTULOSE 20 GM/30 ML UDC (FOR ORAL USE ONLY) PO SCH ×4 (10:30→22:40)
[2023-08-16] MEDS: amLODIPine BESYLATE 10 MG TABLET (FP) PO SCH (10:30)
[2023-08-16] MEDS: NICOTINE 21 MG/24 HOURS TOPICAL PATCH TD SCH (10:31)
[2023-08-16] MEDS: PRENATAL VITAMINS W/ FOLIC ACID TABLET (FP) PO SCH (10:31)
[2023-08-16] MEDS: THIAMINE HCL 100 MG TABLET (FP) PO SCH (22:38)
[2023-08-16] MEDS: MELATONIN 5 MG TABLETS PO SCH (22:39)
[2023-08-17] MEDS ORDERED: chlordiazePOXIDE HCL 10 MG CAPSULE PO PRN
[2023-08-17] MEDS: chlordiazePOXIDE HCL 10 MG CAPSULE PO SCH ×4 (04:56→22:17)
[2023-08-17] MEDS: IBUPROFEN 600 MG TABLET (FP) PO PRN (04:58)
[2023-08-17] MEDS: PRENATAL VITAMINS W/ FOLIC ACID TABLET (FP) PO SCH (10:20)
[2023-08-17] MEDS: cloNIDine HCL 0.1 MG TABLET PO SCH ×2 (10:21→22:17)
[2023-08-17] MEDS: amLODIPine BESYLATE 10 MG TABLET (FP) PO SCH (10:21)
[2023-08-17] MEDS: NICOTINE 21 MG/24 HOURS TOPICAL PATCH TD SCH (10:21)
[2023-08-17] MEDS: LACTULOSE 20 GM/30 ML UDC (FOR ORAL USE ONLY) PO SCH ×4 (10:21→22:18)
[2023-08-17] MEDS: THIAMINE HCL 100 MG TABLET (FP) PO SCH (22:17)
[2023-08-17] MEDS: FLUTICASONE PROP 0.05% 16 GM NASAL SPRAY NS SCH (22:38)
[2023-08-17] MEDS: MELATONIN 5 MG TABLETS PO SCH (23:05)
[2023-08-18] MEDS: chlordiazePOXIDE HCL 10 MG CAPSULE PO SCH ×2 (04:49→18:09)
[2023-08-18] MEDS: amLODIPine BESYLATE 10 MG TABLET (FP) PO SCH (09:49)
[2023-08-18] MEDS: FLUTICASONE PROP 0.05% 16 GM NASAL SPRAY NS SCH ×2 (09:49→22:01)
[2023-08-18] MEDS: PRENATAL VITAMINS W/ FOLIC ACID TABLET (FP) PO SCH (09:49)
[2023-08-18] MEDS: cloNIDine HCL 0.1 MG TABLET PO SCH ×2 (09:49→22:01)
[2023-08-18] MEDS: LACTULOSE 20 GM/30 ML UDC (FOR ORAL USE ONLY) PO SCH ×4 (09:50→22:01)
[2023-08-18] MEDS: NICOTINE 21 MG/24 HOURS TOPICAL PATCH TD SCH (09:50)
[2023-08-18 11:38] LABS: HEMATOCRIT 44.3 % (35.4-49); HEMOGLOBIN 14.5 GM/dL (11.7-16.9); MCH 28.2 pg (25.7-33.7); MCHC 32.8 g/dl (32.0-35.9); MEAN CELL VOLUME 86.1 fl (80-96); MEAN PLT VOLUME 7.9 fl (7.5-11.1); PLATELET COUNT 327 10^3/uL (134-434); RBC 5.14 M/mm3 (4.00-5.60); WHITE BLOOD COUNT 8.7 K/mm3 (4.0-10.0)
[2023-08-18] MEDS: MELATONIN 5 MG TABLETS PO SCH (22:01)
[2023-08-18] MEDS: THIAMINE HCL 100 MG TABLET (FP) PO SCH (22:01)
[2023-08-19] MEDS ORDERED: chlordiazePOXIDE HCL 10 MG CAPSULE PO ONE (05:00)
[2023-08-19] MEDS: LACTULOSE 20 GM/30 ML UDC (FOR ORAL USE ONLY) PO SCH ×2 (10:35→13:14)
[2023-08-19] MEDS: cloNIDine HCL 0.1 MG TABLET PO SCH (10:35)
[2023-08-19] MEDS: amLODIPine BESYLATE 10 MG TABLET (FP) PO SCH (10:35)
[2023-08-19] MEDS: PRENATAL VITAMINS W/ FOLIC ACID TABLET (FP) PO SCH (10:35)
[2023-08-19] MEDS: FLUTICASONE PROP 0.05% 16 GM NASAL SPRAY NS SCH (10:36)
[2023-08-19] MEDS: NICOTINE 21 MG/24 HOURS TOPICAL PATCH TD SCH (10:37)
[2023-08-19 13:04] VITALS: BP 122/58; PULSE 85; RESP 16; TEMP 97.9
== END 2023-08-19 15:25 | disposition other institution (70) | DRG 897 ==
LOC: YASAS 04:34 → Y6N 07:07
PROVIDERS: ADMIT Allergy & Immunology; ATTEND Surgery
PROC: HZ2ZZZZ Detoxification Services for Substance Abuse Treatment (ICD-10-PCS; principal; 2023-08-13)
DX: F10.230 Alcohol dependence with withdrawal, uncomplicated (principal); F14.20 Cocaine dependence, uncomplicated; F17.210 Nicotine dependence, cigarettes, uncomplicated; F32.A Depression, unspecified; I10 Essential (primary) hypertension; K21.9 Gastro-esophageal reflux disease without esophagitis; R79.89 Other specified abnormal findings of blood chemistry; Z86.19 Personal history of other infectious and parasitic diseases
CPT/HCPCS: 36415; 80053; 80307; 82140; 83036; 85027; 86780; 87635; 87811

== ENCOUNTER 2024-03-27 01:43 | Observation (INO) | payer BC, OTHER ==
[2024-03-27 01:55] VITALS: BMI 21.5
[2024-03-27 01:59] VITALS: TEMP 98.3
[2024-03-27 02:22] LABS: BASO % 0.6 % (0-2.0); EOS % 0.8 % (0-4.5); HEMATOCRIT 39.7 % (35.4-49); HEMOGLOBIN 13.6 GM/dL (11.7-16.9); MCH 29.6 pg (25.7-33.7); MCHC 34.3 g/dl (32.0-35.9); MEAN CELL VOLUME 86.1 fl (80-96); MEAN PLT VOLUME 7.8 fl (7.5-11.1); MONO % 6.3 % (3.8-10.2); NEUT % 78.3 % (42.8-82.8); PLATELET COUNT 291 10^3/uL (134-434); RBC 4.61 M/mm3 (4.00-5.60); WHITE BLOOD COUNT 11.5 K/mm3 (4.0-10.0)
[2024-03-27 02:29] LABS: INR 1.03 (0.83-1.09); PROTHROMBIN TIME (PATIENT) 11.8 SEC (9.7-13.0)
[2024-03-27 02:32] LABS: ACTIVATED PTT 32.5 SECONDS (25.2-36.5)
[2024-03-27 02:46] LABS: POTASSIUM 4.1 mmol/L (3.5-5.1)
[2024-03-27 02:48] LABS: CALCIUM 8.7 mg/dL (8.5-10.1)
[2024-03-27 02:49] LABS: ALBUMIN 3.8 g/dl (3.4-5.0); BLOOD UREA NITROGEN 45.1 mg/dL (7-18)
[2024-03-27 02:52] LABS: CREATININE 1.9 mg/dL (0.55-1.3)
[2024-03-27 02:54] LABS: BILIRUBIN,TOTAL 0.6 mg/dL (0.2-1); TOT PROT 6.6 g/dl (6.4-8.2)
[2024-03-27] MEDS: SODIUM CHLORIDE 0.9% 500 ML INFUS.BAG IV ONE (03:37)
[2024-03-27 04:47] LABS: EPI CELLS 17 /uL (0-25.1); HYALINE CASTS 17 /uL (0-3.1); URINE APPEARANCE CLEAR; URINE BACTERIA 4 /uL (0-1359); URINE BILIRUBIN NEGATIVE (NEGATIVE); URINE COLOR YELLOW; URINE GLUCOSE (UA) NEGATIVE (NEGATIVE); URINE KETONE TRACE (NEGATIVE); URINE LEUK ESTERASE TRACE (NEGATIVE); URINE NITRITE NEGATIVE (NEGATIVE); URINE PROTEIN TRACE (NEGATIVE); URINE RBC 41 /uL (0-23.9); URINE WBC 47 /uL (0-25.8)
[2024-03-27 05:17] VITALS: RESP 19
[2024-03-27] MEDS ORDERED: ACETAMINOPHEN 325 MG TABLET (FP) PO PRN (09:04)
[2024-03-27 10:26] LABS: POTASSIUM 3.9 mmol/L (3.5-5.1)
[2024-03-27 10:28] LABS: BLOOD UREA NITROGEN 43.5 mg/dL (7-18); CALCIUM 8.6 mg/dL (8.5-10.1)
[2024-03-27 10:32] LABS: CREATININE 1.6 mg/dL (0.55-1.3)
[2024-03-27 11:39] VITALS: BP 135/67; PULSE 60
[2024-03-27] MEDS: SODIUM CHLORIDE 1,000 ML IV SCH (11:46)
== END 2024-03-27 10:51 | disposition left against medical advice (07) ==
LOC: JER 01:43 → JERBED 06:18
PROVIDERS: ADMIT Internal Medicine; ATTEND Internal Medicine
PROC: 3E0337Z Introduction of Electrolytic and Water Balance Substance into Peripheral Vein, Percutaneous Approach (ICD-10-PCS; principal; 2024-03-27)
DX: E86.0 Dehydration (principal); N17.9 Acute kidney failure, unspecified; S09.90XA Unspecified injury of head, initial encounter; Y92.008 Other place in unspecified non-institutional (private) residence as the place of occurrence of the external cause; W18.39XA Other fall on same level, initial encounter; Y93.89 Activity, other specified; I10 Essential (primary) hypertension; F12.10 Cannabis abuse, uncomplicated; F14.10 Cocaine abuse, uncomplicated; K21.9 Gastro-esophageal reflux disease without esophagitis; B19.20 Unspecified viral hepatitis C without hepatic coma; F32.A Depression, unspecified; M19.90 Unspecified osteoarthritis, unspecified site; M48.02 Spinal stenosis, cervical region; Z86.73 Personal history of transient ischemic attack (TIA), and cerebral infarction without residual deficits
CPT/HCPCS: 0241U-QW; 36415; 70450-TC; 71045-TC-FY; 72125-TC; 72170-TC-FY; 80048; 80053; 81003; 83605; 84484; 85025; 85610; 85730; 86850; 86900; 86901; 87086; 93005; 93010; 96360; 99285-25; G0378

== ENCOUNTER 2024-05-21 17:03 | Inpatient (IN) | payer OTHER ==
[2024-05-21 18:30] VITALS: BMI 19.5
[2024-05-21] MEDS ORDERED: ACETAMINOPHEN 325 MG TABLET (FP) PO PRN (19:55)
[2024-05-21] MEDS ORDERED: POLYETHYLENE GLYCOL (HEALTHYLAX) 3350 17 GM PACKET PO PRN (19:55)
[2024-05-21] MEDS ORDERED: IBUPROFEN 400 MG TABLET (FP) PO PRN (19:55)
[2024-05-21] MEDS ORDERED: NALOXONE (NARCAN) HCL 4 MG/0.1 ML SPRAY NS PRN (19:55)
[2024-05-21] MEDS ORDERED: BENZOCAINE/MENTHOL (CHLORASEPTIC ) LOZENGE MM PRN (19:55)
[2024-05-21] MEDS ORDERED: BENZONATATE 200 MG CAPSULE PO PRN (19:55)
[2024-05-21] MEDS ORDERED: DICYCLOMINE HCL 10 MG CAPSULE PO PRN (19:55)
[2024-05-21] MEDS ORDERED: MAG HYDROX/AL HYDROX/SIMETH 30 ML UNIT-DOSE CUP PO PRN (19:55)
[2024-05-21] MEDS ORDERED: guaiFENesin 600 MG TABLET.ER (FP) PO PRN (19:55)
[2024-05-21] MEDS ORDERED: BISMUTH SUBSALICYLATE 524 MG/30 ML PO PRN (19:55)
[2024-05-21] MEDS ORDERED: NALOXONE HCL 0.4 MG/ML VIAL IM PRN (19:55)
[2024-05-21] MEDS ORDERED: ONDANSETRON *ODT* 4 MG TABLET SL PRN (19:55)
[2024-05-21] MEDS ORDERED: IBUPROFEN 600 MG TABLET (FP) PO PRN (19:55)
[2024-05-21] MEDS ORDERED: LOPERAMIDE HCL 2 MG CAPSULE PO PRN (19:55)
[2024-05-21] MEDS: MELATONIN 5 MG TABLETS PO SCH (22:52)
[2024-05-21] MEDS: THIAMINE 100 MG TABLET PO SCH (22:53)
[2024-05-21] MEDS ORDERED: LORazepam 2 MG TABLET PO SCH (23:00)
[2024-05-21] MEDS ORDERED: LORazepam 1 MG TABLET PO SCH ×2 (23:15→23:45)
[2024-05-21] MEDS: LORazepam 2 MG TABLET PO SCH (23:23)
[2024-05-21] MEDS: LORazepam 1 MG TABLET PO SCH (23:46)
[2024-05-22] MEDS: PRENATAL VITAMINS W/ FOLIC ACID TABLET (FP) PO SCH (10:50)
[2024-05-23] MEDS: LORazepam 1 MG TABLET PO PRN (06:19)
[2024-05-23] MEDS: LORazepam 1 MG TABLET PO SCH (06:21)
[2024-05-23] MEDS: hydrOXYzine PAMOATE 25 MG CAPSULE (FP) PO PRN (06:23)
[2024-05-23 10:45] LABS: EOS % 1.9 % (0-4.5); HEMATOCRIT 38.7 % (35.4-49); HEMOGLOBIN 13.3 GM/dL (11.7-16.9); MCH 29.9 pg (25.7-33.7); MCHC 34.4 g/dl (32.0-35.9); MEAN CELL VOLUME 87.1 fl (80-96); NEUT % 74.1 % (42.8-82.8); PLATELET COUNT 307 10^3/uL (134-434); RBC 4.44 M/mm3 (4.00-5.60); RDW 14.1 % (11.9-15.9); WHITE BLOOD COUNT 10.1 K/mm3 (4.0-10.0)
[2024-05-23] MEDS: LOSARTAN POTASSIUM 50 MG TABLET PO SCH (10:51)
[2024-05-23 10:52] LABS: POTASSIUM 4.3 mmol/L (3.5-5.1)
[2024-05-23 10:55] LABS: ALBUMIN 3.2 g/dl (3.4-5.0); BLOOD UREA NITROGEN 17.3 mg/dL (7-18); CALCIUM 8.9 mg/dL (8.5-10.1)
[2024-05-23 11:00] LABS: BILIRUBIN,TOTAL 0.4 mg/dL (0.2-1); TOT PROT 6.1 g/dl (6.4-8.2)
[2024-05-23] MEDS: ASPIRIN 81 MG CHEWABLE TABLETS PO ONE (18:43)
[2024-05-24] MEDS ORDERED: LORazepam 0.5 MG TABLET PO PRN
[2024-05-24] MEDS: cloNIDine HCL 0.1 MG TABLET PO ONE (01:16)
[2024-05-24] MEDS: LORazepam 0.5 MG TABLET PO SCH (05:41)
[2024-05-24] MEDS: METHOCARBAMOL 500 MG TABLET PO PRN (09:45)
[2024-05-24] MEDS: amLODIPine BESYLATE 10 MG TABLET (FP) PO SCH (11:55)
[2024-05-24] MEDS: MAGNESIUM HYDROX 2400MG/30ML ORAL SUSPENSION 30 ML CUP PO PRN (19:21)
[2024-05-25] MEDS ORDERED: LORazepam 0.5 MG TABLET PO ONE (05:00)
[2024-05-25] MEDS: LORazepam 0.5 MG TABLET PO SCH (05:41)
[2024-05-26] MEDS: LORazepam 0.5 MG TABLET PO ONE (05:37)
[2024-05-26 06:37] VITALS: RESP 16
[2024-05-26 08:49] VITALS: BP 136/77; PULSE 88; TEMP 97.8
== END 2024-05-26 09:45 | disposition home or self-care (01) | DRG 897 ==
LOC: YASAS 17:03 → Y6N 19:44
PROVIDERS: ADMIT Allergy & Immunology; ATTEND Surgery
PROC: HZ2ZZZZ Detoxification Services for Substance Abuse Treatment (ICD-10-PCS; principal; 2024-05-21)
DX: F10.230 Alcohol dependence with withdrawal, uncomplicated (principal); F14.20 Cocaine dependence, uncomplicated; F17.210 Nicotine dependence, cigarettes, uncomplicated; F41.9 Anxiety disorder, unspecified; I10 Essential (primary) hypertension; K21.9 Gastro-esophageal reflux disease without esophagitis; I65.22 Occlusion and stenosis of left carotid artery; R07.9 Chest pain, unspecified; Z86.73 Personal history of transient ischemic attack (TIA), and cerebral infarction without residual deficits
CPT/HCPCS: 36415; 80053; 80305; 85025; 86780; 93005; 93010

== ENCOUNTER 2024-05-23 18:39 | Emergency (ER) | payer OTHER ==
[2024-05-23 19:04] VITALS: BP 139/78; BMI 22.9
[2024-05-23 19:56] VITALS: PULSE 92; RESP 20
[2024-05-23] MEDS ORDERED: ASPIRIN COATED 81 MG TABLET.EC ONE (19:59)
[2024-05-23 20:02] LABS: EOS % 1.8 % (0-4.5); HEMOGLOBIN 12.6 GM/dL (11.7-16.9); LYMPH % 18.8 % (8-40); MCH 29.6 pg (25.7-33.7); MEAN CELL VOLUME 87.1 fl (80-96); MEAN PLT VOLUME 7.6 fl (7.5-11.1); MONO % 6.8 % (3.8-10.2); NEUT % 71.6 % (42.8-82.8); PLATELET COUNT 273 10^3/uL (134-434); RBC 4.25 M/mm3 (4.00-5.60); WHITE BLOOD COUNT 10.8 K/mm3 (4.0-10.0)
[2024-05-23] MEDS: ASPIRIN 81 MG CHEWABLE TABLETS PO ONE (20:06)
[2024-05-23 20:07] LABS: INR 0.95 (0.83-1.09); PROTHROMBIN TIME (PATIENT) 10.9 SEC (9.7-13.0)
[2024-05-23 20:10] LABS: ACTIVATED PTT 28.5 SECONDS (25.2-36.5)
[2024-05-23 20:17] LABS: POTASSIUM 4.3 mmol/L (3.5-5.1)
[2024-05-23 20:19] LABS: CALCIUM 8.7 mg/dL (8.5-10.1)
[2024-05-23 20:21] LABS: BLOOD UREA NITROGEN 25.5 mg/dL (7-18); MAGNESIUM 1.8 mg/dL (1.8-2.4)
[2024-05-23 20:24] LABS: CREATININE 1.2 mg/dL (0.55-1.3); TOT PROT 5.7 g/dl (6.4-8.2)
[2024-05-23 20:25] LABS: BILIRUBIN,TOTAL 0.2 mg/dL (0.2-1)
[2024-05-23] MEDS ORDERED: ACETAMINOPHEN 325 MG TABLET (FP) ONE (20:54)
[2024-05-23] MEDS: ACETAMINOPHEN 325 MG TABLET (FP) PO ONE (20:56)
[2024-05-23] MEDS: ACETAMINOPHEN WITH CODEINE 300MG/30MG TABLET PO ONE (20:57)
[2024-05-23 22:00] VITALS: TEMP 99.2
== END 2024-05-23 22:55 | disposition home or self-care (01) ==
LOC: JER 18:39
DX: K40.90 Unilateral inguinal hernia, without obstruction or gangrene, not specified as recurrent (principal); R07.9 Chest pain, unspecified; Z20.822 Contact with and (suspected) exposure to COVID-19
CPT/HCPCS: 0241U-QW; 36415; 71045-TC-FY; 80053; 83735; 84100; 84484; 85025; 85610; 85730; 93005; 93010; 99285-25

== ENCOUNTER 2024-12-09 17:13 | Inpatient (IN) | payer OTHER ==
[2024-12-09 17:38] VITALS: BMI 20.2
[2024-12-09] MEDS ORDERED: LORazepam 2 MG/ML SDV VIAL ONE (17:57)
[2024-12-09] MEDS ORDERED: POLYETHYLENE GLYCOL (HEALTHYLAX) 3350 17 GM PACKET PO PRN (18:11)
[2024-12-09] MEDS ORDERED: guaiFENesin 600 MG TABLET.ER (FP) PO PRN (18:11)
[2024-12-09] MEDS ORDERED: DICYCLOMINE HCL 10 MG CAPSULE PO PRN (18:11)
[2024-12-09] MEDS ORDERED: MAG HYDROX/AL HYDROX/SIMETH 30 ML UNIT-DOSE CUP PO PRN (18:11)
[2024-12-09] MEDS ORDERED: NALOXONE (NARCAN) HCL 4 MG/0.1 ML SPRAY NS PRN (18:11)
[2024-12-09] MEDS ORDERED: ACETAMINOPHEN 325 MG TABLET (FP) PO PRN (18:11)
[2024-12-09] MEDS ORDERED: IBUPROFEN 600 MG TABLET (FP) PO PRN (18:11)
[2024-12-09] MEDS ORDERED: LOPERAMIDE HCL 2 MG CAPSULE PO PRN (18:11)
[2024-12-09] MEDS ORDERED: ONDANSETRON *ODT* 4 MG TABLET SL PRN (18:11)
[2024-12-09] MEDS ORDERED: LORazepam 1 MG TABLET PO PRN (18:11)
[2024-12-09] MEDS ORDERED: BENZONATATE 200 MG CAPSULE PO PRN (18:11)
[2024-12-09] MEDS ORDERED: BISMUTH SUBSALICYLATE 524 MG/30 ML PO PRN (18:11)
[2024-12-09] MEDS ORDERED: BENZOCAINE/MENTHOL (CHLORASEPTIC ) LOZENGE MM PRN (18:11)
[2024-12-09] MEDS ORDERED: IBUPROFEN 400 MG TABLET (FP) PO PRN (18:11)
[2024-12-09] MEDS ORDERED: hydrOXYzine PAMOATE 25 MG CAPSULE (FP) PO PRN (18:11)
[2024-12-09] MEDS ORDERED: METHOCARBAMOL 500 MG TABLET PO PRN (18:11)
[2024-12-09] MEDS ORDERED: MAGNESIUM HYDROX 2400MG/30ML ORAL SUSPENSION 30 ML CUP PO PRN (18:11)
[2024-12-09] MEDS: LORazepam 2 MG/ML SDV VIAL IM ONE (18:16)
[2024-12-09] MEDS ORDERED: BACLOFEN 10 MG TABLET (FP) PO PRN (18:19)
[2024-12-09] MEDS: LORazepam 2 MG TABLET PO SCH (22:36)
[2024-12-09] MEDS ORDERED: levETIRAcetam 500 MG TABLET (FP) PO ONE (22:36)
[2024-12-09] MEDS ORDERED: LORazepam 2 MG TABLET ONE (22:36)
[2024-12-09] MEDS ORDERED: MELATONIN 5 MG TABLETS ONE (22:36)
[2024-12-09] MEDS: MELATONIN 5 MG TABLETS PO SCH (22:37)
[2024-12-09] MEDS: levETIRAcetam 500 MG TABLET (FP) PO SCH (22:37)
[2024-12-09] MEDS: THIAMINE 100 MG TABLET PO SCH (22:37)
[2024-12-10] MEDS ORDERED: LORazepam 2 MG TABLET ONE ×2 (05:42→10:03)
[2024-12-10] MEDS ORDERED: levETIRAcetam 500 MG TABLET (FP) PO ONE (10:02)
[2024-12-10] MEDS ORDERED: amLODIPine BESYLATE 5 MG TABLET (FP) ONE (10:02)
[2024-12-10] MEDS ORDERED: PRENATAL VITAMINS W/ FOLIC ACID TABLET (FP) PO ONE (10:03)
[2024-12-10] MEDS: PRENATAL VITAMINS W/ FOLIC ACID TABLET (FP) PO SCH (10:06)
[2024-12-10] MEDS: amLODIPine BESYLATE 10 MG TABLET (FP) PO SCH (10:06)
[2024-12-10] MEDS: ASPIRIN 325 MG TABLET PO SCH (10:06)
[2024-12-10 11:22] LABS: HEMATOCRIT 42.3 % (35.4-49); HEMOGLOBIN 13.8 GM/dL (11.7-16.9); MCH 28.2 pg (25.7-33.7); MCHC 32.7 g/dl (32.0-35.9); MEAN CELL VOLUME 86.2 fl (80-96); MEAN PLT VOLUME 8.1 fl (7.5-11.1); PLATELET COUNT 291 10^3/uL (134-434); RBC 4.91 M/mm3 (4.00-5.60); RDW 15.2 % (11.9-15.9); WHITE BLOOD COUNT 9.1 K/mm3 (4.0-10.0)
[2024-12-10 11:23] LABS: CHLORIDE 107 mmol/L (98-107); POTASSIUM 3.9 mmol/L (3.5-5.1); SODIUM 141 mmol/L (136-145)
[2024-12-10 11:29] LABS: CALCIUM 8.6 mg/dL (8.5-10.1)
[2024-12-10 11:30] LABS: ALBUMIN 3.1 g/dl (3.4-5.0); ANION GAP 5 mmol/L (4-13); CO2 30 mmol/L (21-32); GLUCOSE,RANDOM 112 mg/dL (74-106)
[2024-12-10 11:32] LABS: SGOT/AST 16 U/L (15-37); SGPT/ALT 15 U/L (13-61)
[2024-12-10 11:33] LABS: BILIRUBIN,TOTAL 0.3 mg/dL (0.2-1); CREATININE 1.1 mg/dL (0.55-1.3)
[2024-12-10 11:35] LABS: ALK PHOS 78 U/L (45-117)
[2024-12-10] MEDS: LOSARTAN POTASSIUM 50 MG TABLET PO SCH (18:24)
[2024-12-11] MEDS: LORazepam 1 MG TABLET PO SCH (05:45)
[2024-12-11] MEDS: MUPIROCIN CA 2% TOPICAL CREAM 15 GM TUBE TP SCH (22:36)
[2024-12-11] MEDS: NICOTINE POLACRILEX 2 MG GUM BUC PRN (23:36)
[2024-12-12] MEDS ORDERED: LORazepam 0.5 MG TABLET PO PRN
[2024-12-12] MEDS: LORazepam 0.5 MG TABLET PO SCH (05:53)
[2024-12-13] MEDS: LORazepam 0.5 MG TABLET PO ONE (05:41)
[2024-12-14 06:24] VITALS: RESP 16
[2024-12-14 13:19] VITALS: BP 147/74; PULSE 79; TEMP 98
== END 2024-12-14 13:52 | disposition home or self-care (01) | DRG 897 ==
LOC: YASAS 17:13 → Y6N 12-10 08:57
PROVIDERS: ADMIT Allergy & Immunology; ATTEND Allergy & Immunology
PROC: HZ2ZZZZ Detoxification Services for Substance Abuse Treatment (ICD-10-PCS; principal; 2024-12-10)
DX: F10.230 Alcohol dependence with withdrawal, uncomplicated (principal); I69.851 Hemiplegia and hemiparesis following other cerebrovascular disease affecting right dominant side; F17.210 Nicotine dependence, cigarettes, uncomplicated; F14.10 Cocaine abuse, uncomplicated; F32.A Depression, unspecified; I10 Essential (primary) hypertension; K21.9 Gastro-esophageal reflux disease without esophagitis; B18.2 Chronic viral hepatitis C; M54.50 Low back pain, unspecified; G89.29 Other chronic pain; Z96.652 Presence of left artificial knee joint; Z91.81 History of falling
CPT/HCPCS: 36415; 80053; 80305; 80307; 82140; 85027; 86780; 93005; 93010

== ENCOUNTER 2025-01-29 17:23 | Inpatient (IN) | payer OTHER ==
[2025-01-29 18:09] LABS: ABSOLUTE IMMATURE GRANULOCYTES 0.12 x10^3/uL (0.0-0.031); BASOPHILS # 0.04 x10^3/uL (0.01-0.08); HEMATOCRIT 41.2 % (40.1-51.0); HEMOGLOBIN 13.3 g/dL (13.7-17.5); MCHC 32.3 g/dl (32.3-36.5); MEAN CELL VOLUME 87.1 fl (79.0-92.2); MEAN PLT VOLUME 10.6 fl (9.4-12.4); MONOCYTE # 0.89 x10^3/uL (0.30-0.82); MONOCYTE % 5.3 % (5.3-12.2); PLATELET COUNT 232 x10^3/uL (163-337); RDW 14.5 % (12.2-16.6)
[2025-01-29 18:16] LABS: INR 1.23 (0.83-1.09); PROTHROMBIN TIME (PATIENT) 13.5 SEC (9.7-13.0)
[2025-01-29 18:18] LABS: ACTIVATED PTT 30.8 SECONDS (25.2-36.5)
[2025-01-29] MEDS ORDERED: ACETAMINOPHEN INJECTION 100 ML ONE (18:19)
[2025-01-29] MEDS: ACETAMINOPHEN 1000 MG/100 ML BAG IVPB ONE (18:21)
[2025-01-29 18:28] LABS: POTASSIUM 3.4 mmol/L (3.5-5.1)
[2025-01-29 18:30] LABS: ALBUMIN 2.8 g/dl (3.4-5.0); CALCIUM 8.6 mg/dL (8.5-10.1)
[2025-01-29 18:32] LABS: BLOOD UREA NITROGEN 18.6 mg/dL (7-18)
[2025-01-29 18:35] LABS: BILIRUBIN,TOTAL 0.4 mg/dL (0.2-1)
[2025-01-29] MEDS ORDERED: ALBUTEROL SO4 0.083% IH SOL 2.5 MG/3 ML VIAL.NEB. NEB PRN (19:55)
[2025-01-29] MEDS ORDERED: amLODIPine BESYLATE 10 MG TABLET (FP) ONE (21:02)
[2025-01-29] MEDS ORDERED: CEFTRIAXONE 1 G/50 ML PREMIX 50 ML IVPB ONE (21:02)
[2025-01-29] MEDS ORDERED: ASPIRIN 81 MG CHEWABLE TABLETS ONE (21:02)
[2025-01-29] MEDS ORDERED: POTASSIUM CHLORIDE ORAL LIQUID 20 MEQ/15 ML ONE (21:02)
[2025-01-29] MEDS ORDERED: AZITHROMYCIN IVPB 500 MG/250 ML BAG IVPB ONE (21:03)
[2025-01-29] MEDS: POTASSIUM CHLORIDE TABS 20 MEQ TABLET.ER (FP) PO ONE (21:17)
[2025-01-29] MEDS: CEFTRIAXONE 1,000 MG in DEXTROSE 5%-WATER - 50 ML IVPB ONE (21:17)
[2025-01-29] MEDS: ASPIRIN 81 MG CHEWABLE TABLETS PO ONE (21:17)
[2025-01-29] MEDS: amLODIPine BESYLATE 10 MG TABLET (FP) PO ONE (21:18)
[2025-01-29] MEDS: SODIUM CHLORIDE 1,000 ML IV SCH (21:18)
[2025-01-29] MEDS: AZITHROMYCIN IVPB 500 MG in DEXTROSE 5%-WATER - 250 ML IVPB ONE (22:00)
[2025-01-29] MEDS ORDERED: LORazepam 2 MG/ML SDV VIAL ONE (22:28)
[2025-01-29] MEDS: HEPARIN NA (PORCINE) 5,000 UNITS/ML 1ML VIAL SQ SCH (22:38)
[2025-01-29] MEDS: ATORVASTATIN CA 40 MG TABLET (FP) PO SCH (22:38)
[2025-01-29] MEDS: LORazepam 2 MG/ML SDV VIAL IVPUSH ONE (22:40)
[2025-01-30] MEDS: INSULIN ASPART SLIDING SCALE (NOVOLOG) 1 VIAL SQ SCH (06:42)
[2025-01-30 07:31] LABS: HEMATOCRIT 40.3 % (40.1-51.0); HEMOGLOBIN 12.7 g/dL (13.7-17.5); MCHC 31.5 g/dl (32.3-36.5); MEAN CELL VOLUME 88.8 fl (79.0-92.2); MEAN PLT VOLUME 10.3 fl (9.4-12.4); PLATELET COUNT 251 x10^3/uL (163-337); RDW 14.6 % (12.2-16.6)
[2025-01-30 07:53] LABS: POTASSIUM 3.8 mmol/L (3.5-5.1)
[2025-01-30 08:00] LABS: ALBUMIN 2.7 g/dl (3.4-5.0); BLOOD UREA NITROGEN 17.2 mg/dL (7-18); CALCIUM 8.4 mg/dL (8.5-10.1)
[2025-01-30 08:05] LABS: BILIRUBIN,TOTAL 0.7 mg/dL (0.2-1); CREATININE 0.7 mg/dL (0.55-1.3); TOT PROT 5.7 g/dl (6.4-8.2)
[2025-01-30] MEDS ORDERED: LORazepam 1 MG TABLET PO PRN (08:58)
[2025-01-30] MEDS: ASPIRIN COATED 81 MG TABLET.EC PO SCH (09:17)
[2025-01-30] MEDS: LOSARTAN POTASSIUM 50 MG TABLET PO SCH (09:17)
[2025-01-30] MEDS: DOXYCYCLINE HYCLATE 100 MG CAPSULE PO SCH (09:17)
[2025-01-30] MEDS ORDERED: ACETAMINOPHEN 1000 MG/100 ML BAG IVPB PRN (10:11)
[2025-01-30] MEDS: FOLIC ACID 1 MG TABLET (FP) PO SCH (10:12)
[2025-01-30] MEDS: THIAMINE HCL 200 MG/2 ML VIAL IVPB SCH (10:12)
[2025-01-30] MEDS: LORazepam 1 MG TABLET PO SCH (10:13)
[2025-01-30] MEDS: NITROGLYCERIN SUBLINGUAL 1/150 0.4 MG TAB SL PRN (10:53)
[2025-01-30] MEDS: dilTIAZem HCL 30 MG TABLET PO ONE (15:34)
[2025-01-30] MEDS: dilTIAZem HCL 30 MG TABLET PO SCH (17:50)
[2025-01-30] MEDS: LORazepam 2 MG/ML SDV VIAL IVPUSH ONE (22:47)
[2025-01-30] MEDS ORDERED: dilTIAZem HCL 50 MG/10 ML - 10 ML VIAL IVPUSH ONE (23:00)
[2025-01-31] MEDS: dilTIAZem HCL 50 MG/10 ML - 10 ML VIAL IVPUSH ONE ×3 (00:35→17:25)
[2025-01-31] MEDS: LORazepam 2 MG/ML SDV VIAL IVPUSH ONE ×2 (03:19→20:02)
[2025-01-31 07:19] LABS: HEMATOCRIT 42.2 % (40.1-51.0); HEMOGLOBIN 13.5 g/dL (13.7-17.5); MEAN CELL VOLUME 87.7 fl (79.0-92.2); MEAN PLT VOLUME 10.5 fl (9.4-12.4); PLATELET COUNT 312 x10^3/uL (163-337); RDW 14.4 % (12.2-16.6)
[2025-01-31 07:31] LABS: POTASSIUM 3.8 mmol/L (3.5-5.1)
[2025-01-31 07:33] LABS: CALCIUM 8.8 mg/dL (8.5-10.1)
[2025-01-31 07:34] LABS: ALBUMIN 2.8 g/dl (3.4-5.0); BLOOD UREA NITROGEN 12.6 mg/dL (7-18); MAGNESIUM 1.7 mg/dL (1.8-2.4)
[2025-01-31 07:37] LABS: CREATININE 0.7 mg/dL (0.55-1.3); PHOSPHOROUS 2.6 mg/dL (2.5-4.9)
[2025-01-31 07:39] LABS: BILIRUBIN,TOTAL 0.8 mg/dL (0.2-1); TOT PROT 6.1 g/dl (6.4-8.2)
[2025-01-31] MEDS: CEFTRIAXONE 1 G/50 ML PREMIX 50 ML IVPB SCH (13:58)
[2025-01-31] MEDS: chlordiazePOXIDE HCL 25 MG CAPSULE PO PRN (13:59)
[2025-01-31] MEDS: dilTIAZem HCL 25 MG/5 ML - 5 ML VIAL IVPUSH ONE (16:31)
[2025-01-31] MEDS: chlordiazePOXIDE HCL 25 MG CAPSULE PO SCH (17:00)
[2025-01-31] MEDS ORDERED: LEVALBUTEROL HCL 0.31 MG/3 ML VIAL.NEB IH PRN (17:17)
[2025-01-31] MEDS ORDERED: dilTIAZem HCL 30 MG TABLET PO ONE (18:00)
[2025-01-31] MEDS: dilTIAZem HCL 60 MG TABLET PO ONE (18:12)
[2025-01-31 22:20] VITALS: BMI 19.9
[2025-01-31] MEDS: dilTIAZem HCL 60 MG TABLET PO SCH (23:52)
[2025-02-01] MEDS ORDERED: LORazepam 1 MG TABLET PO SCH (05:00)
[2025-02-01 07:30] LABS: HEMATOCRIT 37.7 % (40.1-51.0); HEMOGLOBIN 12.1 g/dL (13.7-17.5); MCHC 32.1 g/dl (32.3-36.5); MEAN CELL VOLUME 87.3 fl (79.0-92.2); MEAN PLT VOLUME 10.1 fl (9.4-12.4); PLATELET COUNT 342 x10^3/uL (163-337); RDW 14.2 % (12.2-16.6)
[2025-02-01 07:53] LABS: POTASSIUM 3.4 mmol/L (3.5-5.1)
[2025-02-01 08:10] LABS: CALCIUM 8.6 mg/dL (8.5-10.1)
[2025-02-01 08:11] LABS: BLOOD UREA NITROGEN 12.5 mg/dL (7-18)
[2025-02-01 08:14] LABS: CREATININE 0.7 mg/dL (0.55-1.3)
[2025-02-01] MEDS: APIXABAN 5 MG TABLET PO SCH (09:37)
[2025-02-01] MEDS: POTASSIUM CHLORIDE ORAL LIQUID 20 MEQ/15 ML PO ONE (09:37)
[2025-02-01] MEDS ORDERED: ENOXAPARIN NA (PORCINE) 60 MG/0.6 ML DISP.SYRIN SQ SCH (10:00)
[2025-02-01] MEDS ORDERED: METOPROLOL TARTRATE 50 MG TABLET (FP) PO SCH (10:00)
[2025-02-01] MEDS ORDERED: ENOXAPARIN NA (PORCINE) 40 MG/0.4 ML DISP.SYRIN SQ SCH (10:00)
[2025-02-01] MEDS ORDERED: dilTIAZem HCL 50 MG/10 ML - 10 ML VIAL IVPUSH ONE (10:18)
[2025-02-01] MEDS: dilTIAZem HCL 25 MG/5 ML - 5 ML VIAL IVPUSH ONE (10:31)
[2025-02-01] MEDS: SODIUM CHLORIDE 1,000 ML IV SCH (20:41)
[2025-02-01] MEDS: LORazepam 2 MG/ML SDV VIAL IVPUSH PRN (20:42)
[2025-02-01] MEDS: LABETALOL HCL 100 MG TABLET (FP) PO SCH (21:16)
[2025-02-01] MEDS: ACETAMINOPHEN 1000 MG/100 ML BAG IVPB ONE (23:36)
[2025-02-02] MEDS ORDERED: LORazepam 0.5 MG TABLET PO PRN
[2025-02-02] MEDS ORDERED: LORazepam 0.5 MG TABLET PO SCH (05:00)
[2025-02-02 07:29] LABS: POTASSIUM 4.3 mmol/L (3.5-5.1)
[2025-02-02 07:30] LABS: CALCIUM 8.9 mg/dL (8.5-10.1)
[2025-02-02 07:34] LABS: CREATININE 0.8 mg/dL (0.55-1.3)
[2025-02-02 07:39] LABS: HEMATOCRIT 40.2 % (40.1-51.0); HEMOGLOBIN 12.6 g/dL (13.7-17.5); MCHC 31.3 g/dl (32.3-36.5); MEAN CELL VOLUME 88.4 fl (79.0-92.2); MEAN PLT VOLUME 10.3 fl (9.4-12.4); PLATELET COUNT 307 x10^3/uL (163-337); RDW 14.5 % (12.2-16.6)
[2025-02-02] MEDS: THIAMINE HCL 200 MG/2 ML VIAL IVPB SCH (11:33)
[2025-02-02] MEDS: DIGOXIN 0.125 MG TABLET PO SCH (11:37)
[2025-02-02] MEDS: chlordiazePOXIDE HCL 25 MG CAPSULE PO SCH (11:39)
[2025-02-02] MEDS: ACETAMINOPHEN 1000 MG/100 ML BAG IVPB ONE (18:34)
[2025-02-02] MEDS: LABETALOL HCL 100 MG TABLET (FP) PO SCH (21:41)
[2025-02-02] MEDS: LORazepam 2 MG/ML SDV VIAL IVPUSH PRN (21:41)
[2025-02-03] MEDS ORDERED: chlordiazePOXIDE HCL 10 MG CAPSULE PO PRN
[2025-02-03] MEDS: chlordiazePOXIDE HCL 10 MG CAPSULE PO SCH (04:37)
[2025-02-03] MEDS ORDERED: LORazepam 0.5 MG TABLET PO ONE (05:00)
[2025-02-03 07:51] LABS: HEMATOCRIT 38.6 % (40.1-51.0); HEMOGLOBIN 12.3 g/dL (13.7-17.5); MCHC 31.9 g/dl (32.3-36.5); MEAN CELL VOLUME 87.7 fl (79.0-92.2); PLATELET COUNT 357 x10^3/uL (163-337); RDW 14.3 % (12.2-16.6)
[2025-02-03 08:09] LABS: POTASSIUM 3.9 mmol/L (3.5-5.1)
[2025-02-03 08:12] LABS: BLOOD UREA NITROGEN 15.4 mg/dL (7-18); CALCIUM 9.2 mg/dL (8.5-10.1); MAGNESIUM 1.6 mg/dL (1.8-2.4)
[2025-02-03 08:17] LABS: CREATININE 0.9 mg/dL (0.55-1.3)
[2025-02-03] MEDS: chlordiazePOXIDE HCL 25 MG CAPSULE PO SCH (19:35)
[2025-02-03] MEDS: MAGNESIUM OXIDE 400 MG TABLET (FP) PO ONE (21:52)
[2025-02-04] MEDS: ACETAMINOPHEN 1000 MG/100 ML BAG IVPB ONE (00:56)
[2025-02-04] MEDS ORDERED: LORazepam 2 MG/ML SDV VIAL IVPUSH PRN ×2 (08:39→19:26)
[2025-02-04] MEDS: LORazepam 2 MG/ML SDV VIAL IM ONE (08:39)
[2025-02-04 08:41] LABS: HEMATOCRIT 37.9 % (40.1-51.0); HEMOGLOBIN 11.7 g/dL (13.7-17.5); MCHC 30.9 g/dl (32.3-36.5); MEAN CELL VOLUME 89.6 fl (79.0-92.2); MEAN PLT VOLUME 9.9 fl (9.4-12.4); PLATELET COUNT 396 x10^3/uL (163-337); RDW 14.4 % (12.2-16.6)
[2025-02-04] MEDS: SODIUM CHLORIDE 500 ML IV STA (09:18)
[2025-02-04 09:21] LABS: CALCIUM 9.1 mg/dL (8.5-10.1)
[2025-02-04 09:22] LABS: BLOOD UREA NITROGEN 14.3 mg/dL (7-18); MAGNESIUM 1.8 mg/dL (1.8-2.4)
[2025-02-04 09:25] LABS: CREATININE 0.9 mg/dL (0.55-1.3)
[2025-02-04] MEDS: THIAMINE HCL 200 MG/2 ML VIAL IVPB SCH (10:26)
[2025-02-04] MEDS: ACETAMINOPHEN 1000 MG/100 ML BAG IVPB SCH ×2 (14:34→20:00)
[2025-02-04] MEDS: SODIUM CHLORIDE 1,000 ML IV SCH (14:35)
[2025-02-04] MEDS: chlordiazePOXIDE HCL 10 MG CAPSULE PO SCH ×2 (14:35→21:47)
[2025-02-04] MEDS ORDERED: chlordiazePOXIDE HCL 10 MG CAPSULE PO SCH (16:42)
[2025-02-04] MEDS ORDERED: SODIUM CHLORIDE 1,000 ML IV SCH (19:26)
[2025-02-04] MEDS ORDERED: NITROGLYCERIN SUBLINGUAL 1/150 0.4 MG TAB SL PRN (19:26)
[2025-02-04] MEDS ORDERED: LEVALBUTEROL HCL 0.31 MG/3 ML VIAL.NEB IH PRN (19:26)
[2025-02-04] MEDS: APIXABAN 5 MG TABLET PO SCH (21:47)
[2025-02-04] MEDS: LABETALOL HCL 100 MG TABLET (FP) PO SCH (21:47)
[2025-02-04] MEDS: ATORVASTATIN CA 40 MG TABLET (FP) PO SCH (21:47)
[2025-02-05] MEDS: LORazepam 0.5 MG TABLET PO ONE (01:02)
[2025-02-05] MEDS: chlordiazePOXIDE HCL 10 MG CAPSULE PO ONE (04:11)
[2025-02-05] MEDS ORDERED: chlordiazePOXIDE HCL 10 MG CAPSULE PO ONE (05:00)
[2025-02-05] MEDS: HALOPERIDOL LACTATE 5 MG/ML IM ONE (05:21)
[2025-02-05] MEDS ORDERED: chlordiazePOXIDE HCL 10 MG CAPSULE PO SCH (06:00)
[2025-02-05] MEDS ORDERED: THIAMINE HCL 200 MG/2 ML VIAL IVPB SCH (10:00)
[2025-02-05] MEDS: DIGOXIN 0.125 MG TABLET PO SCH (10:23)
[2025-02-05] MEDS: CEFTRIAXONE 1 G/50 ML PREMIX 50 ML IVPB SCH (10:23)
[2025-02-05] MEDS: LOSARTAN POTASSIUM 50 MG TABLET PO SCH (10:24)
[2025-02-05] MEDS: FOLIC ACID 1 MG TABLET (FP) PO SCH (10:26)
[2025-02-05] MEDS: DOXYCYCLINE HYCLATE 100 MG CAPSULE PO SCH (10:27)
[2025-02-05 10:50] LABS: HEMATOCRIT 37.9 % (40.1-51.0); HEMOGLOBIN 11.7 g/dL (13.7-17.5); MCHC 30.9 g/dl (32.3-36.5); MEAN CELL VOLUME 89.4 fl (79.0-92.2); MEAN PLT VOLUME 9.6 fl (9.4-12.4); PLATELET COUNT 371 x10^3/uL (163-337); RDW 14.2 % (12.2-16.6)
[2025-02-05 11:04] LABS: POTASSIUM 3.8 mmol/L (3.5-5.1)
[2025-02-05 11:05] LABS: BLOOD UREA NITROGEN 11.7 mg/dL (7-18); CALCIUM 9.3 mg/dL (8.5-10.1)
[2025-02-05 11:09] LABS: CREATININE 0.9 mg/dL (0.55-1.3)
[2025-02-05] MEDS: THIAMINE HCL 200 MG/2 ML VIAL IVPB SCH (13:08)
[2025-02-05] MEDS: ACETAMINOPHEN 325 MG TABLET (FP) PO PRN (21:32)
[2025-02-05] MEDS: QUEtiapine FUMARATE 25 MG TABLET PO SCH (21:36)
[2025-02-06 08:09] LABS: ABSOLUTE IMMATURE GRANULOCYTES 0.08 x10^3/uL (0.0-0.031); BASOPHILS # 0.08 x10^3/uL (0.01-0.08); EOSINOPHIL % 1.6 % (0.8-7.0); EOSINOPHILS # 0.21 x10^3/uL (0.04-0.54); HEMATOCRIT 41.7 % (40.1-51.0); HEMOGLOBIN 12.8 g/dL (13.7-17.5); MCHC 30.7 g/dl (32.3-36.5); MEAN CELL VOLUME 90.7 fl (79.0-92.2); MEAN PLT VOLUME 9.5 fl (9.4-12.4); MONOCYTE # 0.59 x10^3/uL (0.30-0.82); MONOCYTE % 4.5 % (5.3-12.2); PLATELET COUNT 366 x10^3/uL (163-337); RDW 14.1 % (12.2-16.6)
[2025-02-06 08:23] LABS: POTASSIUM 4.2 mmol/L (3.5-5.1)
[2025-02-06 08:29] LABS: CALCIUM 9.4 mg/dL (8.5-10.1)
[2025-02-06 08:30] LABS: BLOOD UREA NITROGEN 12.2 mg/dL (7-18)
[2025-02-06 08:34] LABS: PHOSPHOROUS 3.2 mg/dL (2.5-4.9)
[2025-02-06] MEDS: LOSARTAN POTASSIUM 50 MG TABLET PO SCH (12:09)
[2025-02-06] MEDS: FOLIC ACID 1 MG TABLET (FP) PO SCH (12:09)
[2025-02-06] MEDS: DIGOXIN 0.125 MG TABLET PO SCH (12:09)
[2025-02-06] MEDS: APIXABAN 5 MG TABLET PO SCH (12:09)
[2025-02-06] MEDS: LABETALOL HCL 100 MG TABLET (FP) PO SCH (12:09)
[2025-02-06] MEDS: DOXYCYCLINE HYCLATE 100 MG CAPSULE PO SCH (12:10)
[2025-02-06] MEDS ORDERED: SODIUM CHLORIDE 1,000 ML IV SCH (18:30)
[2025-02-06] MEDS: SODIUM CHLORIDE 1,000 ML IV SCH (20:00)
[2025-02-06 21:13] VITALS: RESP 18
[2025-02-07 06:12] VITALS: TEMP 97.7
[2025-02-07 08:23] LABS: HEMATOCRIT 39.4 % (40.1-51.0); HEMOGLOBIN 12.2 g/dL (13.7-17.5); MEAN PLT VOLUME 10.4 fl (9.4-12.4); PLATELET COUNT 317 x10^3/uL (163-337); RDW 14.4 % (12.2-16.6)
[2025-02-07 08:46] LABS: POTASSIUM 4.6 mmol/L (3.5-5.1)
[2025-02-07 08:56] LABS: BLOOD UREA NITROGEN 28.6 mg/dL (7-18)
[2025-02-07 08:57] LABS: ALBUMIN 2.9 g/dl (3.4-5.0)
[2025-02-07 08:58] LABS: CALCIUM 8.7 mg/dL (8.5-10.1); MAGNESIUM 1.9 mg/dL (1.8-2.4)
[2025-02-07 09:00] LABS: CREATININE 1.3 mg/dL (0.55-1.3); PHOSPHOROUS 3.4 mg/dL (2.5-4.9)
[2025-02-07 09:01] LABS: BILIRUBIN,TOTAL 0.3 mg/dL (0.2-1); TOT PROT 6.1 g/dl (6.4-8.2)
[2025-02-07 09:29] VITALS: BP 112/52; PULSE 69
[2025-02-07] MEDS ORDERED: chlordiazePOXIDE HCL 10 MG CAPSULE PO ONE ×3 (10:08)
== END 2025-02-07 13:06 | disposition home or self-care (01) | DRG 308 ==
LOC: JER 17:23 → JERBED 20:04 → J4W 23:43 → OBSVTOIN 02-01 16:46 → J6S 02-04 18:49
PROVIDERS: ADMIT Hospitalist; ATTEND Internal Medicine
PROC: HZ2ZZZZ Detoxification Services for Substance Abuse Treatment (ICD-10-PCS; principal; 2025-02-01)
DX: I48.0 Paroxysmal atrial fibrillation (principal); G93.41 Metabolic encephalopathy; J18.9 Pneumonia, unspecified organism; I24.89 Other forms of acute ischemic heart disease; F10.939 Alcohol use, unspecified with withdrawal, unspecified; F19.10 Other psychoactive substance abuse, uncomplicated; I48.92 Unspecified atrial flutter; I10 Essential (primary) hypertension; F17.210 Nicotine dependence, cigarettes, uncomplicated; I47.10 Supraventricular tachycardia, unspecified
CPT/HCPCS: 0241U-QW; 36415; 71045-TC-FY; 74230-TC-FY; 76856-TC; 80048; 80053; 80162; 82962; 83036; 83735; 84100; 84443; 84484; 85025; 85027; 85610; 85730; 92611-GN; 93005; 93010; 93306-TC; 97116-GP; 97161-GP; 99285-25; G0378; J0131; J1644

== ENCOUNTER 2025-03-17 22:56 | Emergency (ER) | payer OTHER ==
[2025-03-17 23:14] VITALS: BMI 20.3
[2025-03-18 01:47] LABS: ABSOLUTE IMMATURE GRANULOCYTES 0.02 x10^3/uL (0.0-0.031); BASOPHILS # 0.09 x10^3/uL (0.01-0.08); EOSINOPHILS # 0.22 x10^3/uL (0.04-0.54); HEMATOCRIT 41.5 % (40.1-51.0); HEMOGLOBIN 13.1 g/dL (13.7-17.5); MCHC 31.6 g/dl (32.3-36.5); MEAN PLT VOLUME 9.3 fl (9.4-12.4); MONOCYTE # 0.63 x10^3/uL (0.30-0.82); MONOCYTE % 5.7 % (5.3-12.2); PLATELET COUNT 314 x10^3/uL (163-337); RDW 14.8 % (12.2-16.6)
[2025-03-18 02:14] LABS: BLOOD UREA NITROGEN 23.9 mg/dL (7-18); CALCIUM 9.5 mg/dL (8.5-10.1); POTASSIUM 4.5 mmol/L (3.5-5.1)
[2025-03-18 02:15] LABS: ALBUMIN 3.2 g/dl (3.4-5.0); MAGNESIUM 1.9 mg/dL (1.8-2.4)
[2025-03-18 02:18] LABS: CREATININE 0.9 mg/dL (0.55-1.3)
[2025-03-18 02:19] LABS: BILIRUBIN,TOTAL 0.2 mg/dL (0.2-1); TOT PROT 6.2 g/dl (6.4-8.2)
[2025-03-18 03:20] LABS: PH,URINE 7.5 (5.0-8.0); URINE APPEARANCE CLEAR; URINE BILIRUBIN NEGATIVE (NEGATIVE); URINE COLOR YELLOW; URINE GLUCOSE (UA) NEGATIVE (NEGATIVE); URINE KETONE NEGATIVE (NEGATIVE); URINE LEUK ESTERASE NEGATIVE (NEGATIVE); URINE NITRITE NEGATIVE (NEGATIVE); URINE PROTEIN NEGATIVE (NEGATIVE); URINE UROBILINOGEN 0.2 mg/dL (0.2-1.0)
[2025-03-18 05:46] VITALS: TEMP 97.5
[2025-03-18] MEDS ORDERED: chlordiazePOXIDE HCL 25 MG CAPSULE ONE (11:36)
[2025-03-18] MEDS: chlordiazePOXIDE HCL 25 MG CAPSULE PO ONE (12:00)
[2025-03-18 12:01] VITALS: BP 145/87; PULSE 76; RESP 20
== END 2025-03-18 12:03 | disposition home or self-care (01) ==
LOC: JER 22:56
DX: F10.10 Alcohol abuse, uncomplicated (principal); F13.10 Sedative, hypnotic or anxiolytic abuse, uncomplicated; F14.10 Cocaine abuse, uncomplicated; R07.9 Chest pain, unspecified; R41.0 Disorientation, unspecified
CPT/HCPCS: 36415; 70450-TC; 71046-TC-FY; 80053; 81003; 82140; 83735; 84484; 85025; 93005; 93010; 99285-25